=== PATIENT | male | born 1965 | race Caucasian/White ===

== ENCOUNTER 2019-04-22 17:13 | Inpatient (IN) | payer OTHER ==
[2019-04-22 17:30] LABS: Basophils # (A) 0.1 k/uL (0-0.2); Basophils % (A) 1 %; Eosinophils # (A) 0.1 k/uL (0-0.7); Eosinophils % (A) 1 %; HCT 43.6 % (39.0-53.0); HGB 13.7 gm/dL (13.0-17.5); Hypochromasia Slight; Lymphocytes # (A) 3.1 k/uL (1.0-4.8); Lymphocytes % (A) 20 %; MCH 29.4 pg (25.0-35.0); MCHC 31.5 g/dL (31.0-37.0); MCV 93.4 fL (80.0-100.0); Mean Platelet Volume 7.4; Monocytes # (A) 1.2 k/uL (0-1.0); Monocytes % (A) 8 %; Neutrophils % (A) 69 %; Platelet Count 302 k/uL (150-450); RBC 4.67 m/uL (4.30-5.90); RDW 14.2 % (11.5-15.5); WBC 15.8 k/uL (3.8-10.6)
[2019-04-22] MEDS ORDERED: NOREPINEPHRINE 32 MG in SODIUM CHLORIDE 0.9% 218 ML IV ONE (17:30)
[2019-04-22 17:39] LABS: INR 0.9 (<1.2); Partial Thromboplastin Time 26.6 sec (22.0-30.0); Prothrombin Time 10.1 sec (9.0-12.0)
[2019-04-22 17:42] LABS: Albumin 3.6 g/dL (3.5-5.0); Calcium 9.1 mg/dL (8.4-10.2); Potassium 2.8 mmol/L (3.5-5.1); Total Bilirubin 0.3 mg/dL (0.2-1.3); Total Protein 5.7 g/dL (6.3-8.2)
--- NOTE | 2019-04-22 18:04 | ED ---
General Adult HPI - General Chief complaint: Cardiac Arrest/CPR Stated complaint: Cardiac Arrest Source: EMS Mode of arrival: EMS - History of Present Illness Initial comments: Dictation was produced using [employer] dictation software. please excuse any grammatical, word or spelling errors. Chief Complaint: 54-year-old male presents after cardiac arrest. History of Present Illness: This 54-year-old male presents after cardiac arrest. EMS reports that patient was down for approximately 10 minutes. EMS got there CPR was started. CPR was continued for approximately 30 minutes. This point we do not know if patient has any medical history. He received multiple rounds of epinephrine. Unable to obtain ROS secondary to mental status. PHYSICAL EXAM: General Impression: Obtunded HEENT: Normocephalic atraumatic, fixed and dilated pupils Cardiovascular: Tachycardic Chest: Bilateral breath sounds Abdomen: abdomen soft, nondistended Musculoskeletal: Pulses present and equal in all extremities, no peripheral edema Neurological: Comatose, fixed dilated pupils Skin: Intact with no visualized rashes ED course: 54-year-old male presents with cardiac arrest. Upon initial arrival to the emergency department patient did have pulses. Mucous devices removed. Patient was intubated. Right femoral groin central line and right arterial line was placed in the right groin. EKG was obtained showing ST elevation in aVR with diffuse ST segment elevation. There is concern of proximal L Dejesus occlusion. Discussed patient case with Dr. Gunderson who is sent to activate JOSE. Patient given rectal aspirin. Heparin bolus administered. More history was obtained from significant other. She reports that patient donated plasma and hasn't really been feeling well. To her knowledge she was not complaining of any chest pain. Patient to be disposition to field laborer. Patient to be admitted to [facility] physician group Dr. Walter. EKG interpretation: Ventricular rate 101, sinus tachycardia,. 172, care is 80, QTc 461. ST elevation in aVR with reciprocal depressions diffusely Q waves in inferior leads. Clinical presentation is concerning for left main ST segment e levation ID. Review of Systems ROS Statement: Those systems with pertinent positive or pertinent negative responses have been documented in the HPI. ROS Other: All systems not noted in ROS Statement are negative. Past Medical History Past Medical History: Unable to Obtain History of Any Multi-Drug Resistant Organisms: Unobtainable Past Surgical History: Unable to Obtain Smoking Status: Unknown if ever smoked Past Alcohol Use History: Unable to Obtain Past Drug Use History: Unable to Obtain Course Vital Signs 04/22/19 04/22/19 04/22/19 17:17 17:41 17:45 Temperature Pulse Rate 98 116 H 116 H Respiratory 18 19 21 Rate Blood Pressure 108/58 134/81 159/98 O2 Sat by Pulse 100 100 100 Oximetry 04/22/19 04/22/19 04/22/19 17:50 17:55 18:00 Temperature Pulse Rate 120 H 121 H 121 H Respiratory 21 15 18 Rate Blood Pressure 180/108 202/120 216/129 O2 Sat by Pulse 99 99 98 Oximetry 04/22/19 18:09 Temperature 97.4 F L Pulse Rate 117 H Respiratory 16 Rate Blood Pressure 225/102 O2 Sat by Pulse 98 Oximetry ABP, PAP, CO, CI - Last 8 Hours Arterial Blood Pressure 159/157 Arterial Blood Pressure 206/119 Arterial Blood Pressure 238/164 Procedures - Central Line Placement Right Femoral Consent Obtained: emergent situation Patient Placed on Monitor/Pulse Ox: Yes MD Prep: mask, gown, gloves Central Line Prep: Chlorhexidine scrub Ultrasound Used for Placement: Yes Central Line Lumen Inserted: triple Bloods Obtained for Lab: Yes Central Line Position: good blood return, all ports aspirated, flushed, capped, sutured in place with 3-0 nylon Dressing Applied: Tegaderm Patient Tolerated Procedure: well - Intubation Laryngoscope: Pastrana Size: 4 ET Tube Size: 7.5 ET Tube Uncuffed: No Tube Secured Location: teeth Tube Placement Confirmation: visualized tube passing through cords, equal breath sounds bilaterally, no breath sounds over epigastrium, confirmation by capnometry Patient Tolerated Procedure: well Intubation Complications: none Medical Decision Making - Lab Data Result diagrams: 04/22/19 17:12 04/22/19 17:12 Lab Results 04/22/19 04/22/19 04/22/19 Range/Units 17:12 17:12 17:12 WBC 15.8 H (3.8-10.6) k/uL RBC 4.67 (4.30-5.90) m/uL Hgb 13.7 (13.0-17.5) gm/dL Hct 43.6 (39.0-53.0) % MCV 93.4 (80.0-100.0) fL MCH 29.4 (25.0-35.0) pg MCHC 31.5 (31.0-37.0) g/dL RDW 14.2 (11.5-15.5) % Plt Count 302 (150-450) k/uL Neutrophils % 69 % Lymphocytes % 20 % Monocytes % 8 % Eosinophils % 1 % Basophils % 1 % Neutrophils # 11.0 H (1.3-7.7) k/uL Lymphocytes # 3.1 (1.0-4.8) k/uL Monocytes # 1.2 H (0-1.0) k/uL Eosinophils # 0.1 (0-0.7) k/uL Basophils # 0.1 (0-0.2) k/uL Hypochromasia Slight PT 10.1 (9.0-12.0) sec INR 0.9 (<1.2) APTT 26.6 (22.0-30.0) sec VBG pH (7.31-7.41) VBG pCO2 (37-51) mmHg VBG HCO3 (24-28) mmol/L Sodium 142 (137-145) mmol/L Potassium 2.8 L (3.5-5.1) mmol/L Chloride 102 (98-107) mmol/L Carbon Dioxide 16 L (22-30) mmol/L Anion Gap 24 mmol/L BUN 14 (9-20) mg/dL Creatinine 1.81 H (0.66-1.25) mg/dL Est GFR (CKD-EPI)AfAm 48 (>60 ml/min/1.73 sqM) Est GFR (CKD-EPI)NonAf 42 (>60 ml/min/1.73 sqM) Glucose 323 H (74-99) mg/dL Plasma Lactic Acid Adarsh (0.7-2.0) mmol/L Calcium 9.1 (8.4-10.2) mg/dL Total Bilirubin 0.3 (0.2-1.3) mg/dL AST 46 (17-59) U/L ALT 36 (21-72) U/L Alkaline Phosphatase 158 H (38-126) U/L Troponin I (0.000-0.034) ng/mL Total Protein 5.7 L (6.3-8.2) g/dL Albumin 3.6 (3.5-5.0) g/dL 04/22/19 04/22/19 04/22/19 Range/Units 17:12 17:12 17:12 WBC (3.8-10.6) k/uL RBC (4.30-5.90) m/uL Hgb (13.0-17.5) gm/dL Hct (39.0-53.0) % MCV (80.0-100.0) fL MCH (25.0-35.0) pg MCHC (31.0-37.0) g/dL RDW (11.5-15.5) % Plt Count (150-450) k/uL Neutrophils % % Lymphocytes % % Monocytes % % Eosinophils % % Basophils % % Neutrophils # (1.3-7.7) k/uL Lymphocytes # (1.0-4.8) k/uL Monocytes # (0-1.0) k/uL Eosinophils # (0-0.7) k/uL Basophils # (0-0.2) k/uL Hypochromasia PT (9.0-12.0) sec INR (<1.2) APTT (22.0-30.0) sec VBG pH 6.89 L* (7.31-7.41) VBG pCO2 95 H* (37-51) mmHg VBG HCO3 17 L (24-28) mmol/L Sodium (137-145) mmol/L Potassium (3.5-5.1) mmol/L Chloride (98-107) mmol/L Carbon Dioxide (22-30) mmol/L Anion Gap mmol/L BUN (9-20) mg/dL Creatinine (0.66-1.25) mg/dL Est GFR (CKD-EPI)AfAm (>60 ml/min/1.73 sqM) Est GFR (CKD-EPI)NonAf (>60 ml/min/1.73 sqM) Glucose (74-99) mg/dL Plasma Lactic Acid Adarsh 12.8 H* (0.7-2.0) mmol/L Calcium (8.4-10.2) mg/dL Total Bilirubin (0.2-1.3) mg/dL AST (17-59) U/L ALT (21-72) U/L Alkaline Phosphatase (38-126) U/L Troponin I <0.012 (0.000-0.034) ng/mL Total Protein (6.3-8.2) g/dL Albumin (3.5-5.0) g/dL Disposition Clinical Impression: STEMI (ST elevation myocardial infarction) Disposition: ADMITTED IP TO THIS HOSP Condition: Critical Referrals: None,Stated [Primary Care Provider] - 1-2 days Decision Time: 18:20
[2019-04-22 18:07] LABS: VBG PH 6.89 (7.31-7.41)
[2019-04-22] MEDS ORDERED: ASPIRIN 300 MG SUPP RECTAL STA (18:07)
--- NOTE | 2019-04-22 18:08 | XR ---
EXAMINATION TYPE: XR chest 1V portable DATE OF EXAM: 04/22/2019 COMPARISON: NONE HISTORY: Chest pain TECHNIQUE: Single frontal view of the chest is obtained. FINDINGS: Artifact limits exam. ET tube in the right mainstem bronchus. NG tube seen coursing in the abdomen. No obvious pneumothorax or consolidation. Heart is enlarged. IMPRESSION: 1. ET tube is in the right mainstem bronchus correlate for repositioning
[2019-04-22] MEDS ORDERED: NALOXONE 0.4 MG/ML 1 ML VIAL IV PRN ×2 (18:15→21:56)
[2019-04-22] MEDS ORDERED: LIDOCAINE 1% INJ 10MG/ML (20 ML MDV) ONE (18:20)
[2019-04-22 18:21] LABS: ABG Base Excess -9.1 mmol/L; ABG HCO3 19 mmol/L (21-25); ABG Oxygen Saturation 99.4 % (94-97); ABG PCO2 52 mmHg (35-45); ABG PO2 261 mmHg (83-108); ABG TCO2 21 mmol/L (19-24); Allen Test Performed? Yes
--- NOTE | 2019-04-22 18:23 | ED ---
Medical Decision Making - Lab Data Result diagrams: 04/22/19 17:12 04/22/19 17:12 Lab Results 04/22/19 04/22/19 04/22/19 Range/Units 17:12 17:12 17:12 WBC 15.8 H (3.8-10.6) k/uL RBC 4.67 (4.30-5.90) m/uL Hgb 13.7 (13.0-17.5) gm/dL Hct 43.6 (39.0-53.0) % MCV 93.4 (80.0-100.0) fL MCH 29.4 (25.0-35.0) pg MCHC 31.5 (31.0-37.0) g/dL RDW 14.2 (11.5-15.5) % Plt Count 302 (150-450) k/uL Neutrophils % 69 % Lymphocytes % 20 % Monocytes % 8 % Eosinophils % 1 % Basophils % 1 % Neutrophils # 11.0 H (1.3-7.7) k/uL Lymphocytes # 3.1 (1.0-4.8) k/uL Monocytes # 1.2 H (0-1.0) k/uL Eosinophils # 0.1 (0-0.7) k/uL Basophils # 0.1 (0-0.2) k/uL Hypochromasia Slight PT 10.1 (9.0-12.0) sec INR 0.9 (<1.2) APTT 26.6 (22.0-30.0) sec VBG pH (7.31-7.41) VBG pCO2 (37-51) mmHg VBG HCO3 (24-28) mmol/L Sodium 142 (137-145) mmol/L Potassium 2.8 L (3.5-5.1) mmol/L Chloride 102 (98-107) mmol/L Carbon Dioxide 16 L (22-30) mmol/L Anion Gap 24 mmol/L BUN 14 (9-20) mg/dL Creatinine 1.81 H (0.66-1.25) mg/dL Est GFR (CKD-EPI)AfAm 48 (>60 ml/min/1.73 sqM) Est GFR (CKD-EPI)NonAf 42 (>60 ml/min/1.73 sqM) Glucose 323 H (74-99) mg/dL Plasma Lactic Acid Adarsh (0.7-2.0) mmol/L Calcium 9.1 (8.4-10.2) mg/dL Total Bilirubin 0.3 (0.2-1.3) mg/dL AST 46 (17-59) U/L ALT 36 (21-72) U/L Alkaline Phosphatase 158 H (38-126) U/L Troponin I (0.000-0.034) ng/mL Total Protein 5.7 L (6.3-8.2) g/dL Albumin 3.6 (3.5-5.0) g/dL 04/22/19 04/22/19 04/22/19 Range/Units 17:12 17:12 17:12 WBC (3.8-10.6) k/uL RBC (4.30-5.90) m/uL Hgb (13.0-17.5) gm/dL Hct (39.0-53.0) % MCV (80.0-100.0) fL MCH (25.0-35.0) pg MCHC (31.0-37.0) g/dL RDW (11.5-15.5) % Plt Count (150-450) k/uL Neutrophils % % Lymphocytes % % Monocytes % % Eosinophils % % Basophils % % Neutrophils # (1.3-7.7) k/uL Lymphocytes # (1.0-4.8) k/uL Monocytes # (0-1.0) k/uL Eosinophils # (0-0.7) k/uL Basophils # (0-0.2) k/uL Hypochromasia PT (9.0-12.0) sec INR (<1.2) APTT (22.0-30.0) sec VBG pH 6.89 L* (7.31-7.41) VBG pCO2 95 H* (37-51) mmHg VBG HCO3 17 L (24-28) mmol/L Sodium (137-145) mmol/L Potassium (3.5-5.1) mmol/L Chloride (98-107) mmol/L Carbon Dioxide (22-30) mmol/L Anion Gap mmol/L BUN (9-20) mg/dL Creatinine (0.66-1.25) mg/dL Est GFR (CKD-EPI)AfAm (>60 ml/min/1.73 sqM) Est GFR (CKD-EPI)NonAf (>60 ml/min/1.73 sqM) Glucose (74-99) mg/dL Plasma Lactic Acid Adarsh 12.8 H* (0.7-2.0) mmol/L Calcium (8.4-10.2) mg/dL Total Bilirubin (0.2-1.3) mg/dL AST (17-59) U/L ALT (21-72) U/L Alkaline Phosphatase (38-126) U/L Troponin I <0.012 (0.000-0.034) ng/mL Total Protein (6.3-8.2) g/dL Albumin (3.5-5.0) g/dL Critical Care Time Critical Care Time: Yes Total Critical Care Time: 31 Disposition Clinical Impression: STEMI (ST elevation myocardial infarction) Disposition: ADMITTED IP TO THIS [facility] Condition: Critical Referrals: None,Stated [Primary Care Provider] - 1-2 days
[2019-04-22] MEDS ORDERED: SODIUM BICARB 8.4% 50 ML VIAL (1 MEQ/ML) IV ONE ×2 (18:46→18:48)
[2019-04-22] MEDS ORDERED: SODIUM CHLORIDE 0.9% 1,000 ML IV ONE ×4 (18:53→18:55)
[2019-04-22] MEDS ORDERED: LIDOCAINE 1% INJ 10MG/ML (20 ML MDV) SQ ONE (18:55)
[2019-04-22] MEDS: METOPROLOL TARTRATE 5 MG/5 ML VIAL IVP ONE ×2 (18:56→19:16)
[2019-04-22] MEDS ORDERED: METOPROLOL TARTRATE 5 MG/5 ML VIAL IVP ONE ×2 (18:59→19:15)
[2019-04-22] MEDS: MAGNESIUM SULFATE-D5W PMX 1 GM in DEXTROSE/WATER 1 100ML.BAG IVPB SCH (19:00)
[2019-04-22] MEDS: POTASSIUM CHLORIDE 20 MEQ in WATER FOR INJECTION 1 100ML.BAG IVPB SCH ×3 (19:05→23:01)
[2019-04-22] MEDS: hydrALAZINE HCL 20 MG/ML 1 ML VIAL IV ONE ×2 (19:05→19:14)
[2019-04-22] MEDS ORDERED: hydrALAZINE HCL 20 MG/ML 1 ML VIAL ONE (19:08)
[2019-04-22] MEDS ORDERED: NITROGLYCERIN-D5W PMX 50 MG in DEXTROSE/WATER 1 250ML.BAG IV ONE (19:15)
[2019-04-22] MEDS ORDERED: IOPAMIDOL-370 125ML BTL INJ ONE (19:20)
[2019-04-22] MEDS ORDERED: FUROSEMIDE 10 MG/ML 4 ML VIAL IV ONE (19:20)
[2019-04-22] MEDS ORDERED: FUROSEMIDE 10 MG/ML 4 ML VIAL ONE (19:22)
[2019-04-22] MEDS ORDERED: RX INFO: IV CONTRAST WAS GIVEN 1 EACH MISC MISCELLANE PRN (19:23)
[2019-04-22] MEDS ORDERED: SODIUM CHLORIDE 0.9% 1,000 ML IV SCH (19:30)
--- NOTE | 2019-04-22 19:58 | P.CRDCN ---
History of Present Illness History of present illness: This is Dr. Kong dictating a consult on this patient The patient was interviewed and examined by me IMPRESSION / ASSESSMENT: Cardiac arrest patient presented with asystole. 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 Discussed with Dr. Chambers HPI Patient apparently was found in cardiac arrest at home after plasma donation No other history available Patient intubated History available from emergency room nurses ACS protocol for about 10 minutes in the emergency room ST depressions diffusely with ST elevation in aVR ROS: Not available EXAMINATION: Patient's blood pressures elevated in the Police Worker Sinus tachycardia Intubated Central chest retractions Abdomen is soft Breath sounds are reduced bilaterally Heart sounds are soft REVIEW OF LABS, ECG & MEDICAL DATA Lactic acidosis, elevated lactic acid levels, acidotic Elevated white count Creatinine 1.8 Troponin normal Twelve-lead ECG shows sinus tachycardia ST depression in the precordial leads and the inferolateral leads with ST elevation in aVR Past Medical History Past Medical History: Unable to Obtain History of Any Multi-Drug Resistant Organisms: Unobtainable Past Surgical History: Unable to Obtain Smoking Status: Unknown if ever smoked Past Alcohol Use History: Unable to Obtain Past Drug Use History: Unable to Obtain Medications and Allergies Allergies Allergy/AdvReac Type Severity Reaction Status Date / Time No Known Allergies Allergy Verified 04/22/19 18:51 Physical Exam Vitals: Vital Signs Temp Pulse Resp BP Pulse Ox 04/22/19 18:52 97.4 F L 111 H 18 233/131 99 04/22/19 18:20 111 H 18 233/131 99 04/22/19 18:15 113 H 14 230/132 98 04/22/19 18:10 117 H 17 225/132 98 04/22/19 18:09 97.4 F L 117 H 16 225/102 98 04/22/19 18:05 120 H 18 220/128 98 04/22/19 18:00 121 H 18 216/129 98 04/22/19 17:55 121 H 15 202/120 99 04/22/19 17:50 120 H 21 180/108 99 04/22/19 17:45 116 H 21 159/98 100 04/22/19 17:41 116 H 19 134/81 100 04/22/19 17:17 98 18 108/58 100 Intake and Output 04/22/19 04/22/19 04/22/19 06:59 14:59 22:59 Intake Total 469 Output Total 1200 Balance -731 Intake: IV 469 Output: Urine 1200 Other: Weight 98.611 kg ABP, PAP, CO, CI - Last 8 Hours Arterial Blood Pressure 52/23 Arterial Blood Pressure 80/80 Arterial Blood Pressure 0/0 Arterial Blood Pressure 159/157 Arterial Blood Pressure 206/119 Arterial Blood Pressure 238/164 Results 04/22/19 17:12 04/22/19 17:12 Cardiac Enzymes 04/22/19 04/22/19 Range/Units 17:12 17:12 AST 46 (17-59) U/L Troponin I <0.012 (0.000-0.034) ng/mL Coagulation 04/22/19 Range/Units 17:12 PT 10.1 (9.0-12.0) sec APTT 26.6 (22.0-30.0) sec CBC 04/22/19 Range/Units 17:12 WBC 15.8 H (3.8-10.6) k/uL RBC 4.67 (4.30-5.90) m/uL Hgb 13.7 (13.0-17.5) gm/dL Hct 43.6 (39.0-53.0) % Plt Count 302 (150-450) k/uL Comprehensive Metabolic Panel 04/22/19 Range/Units 17:12 Sodium 142 (137-145) mmol/L Potassium 2.8 L (3.5-5.1) mmol/L Chloride 102 (98-107) mmol/L Carbon Dioxide 16 L (22-30) mmol/L BUN 14 (9-20) mg/dL Creatinine 1.81 H (0.66-1.25) mg/dL Glucose 323 H (74-99) mg/dL Calcium 9.1 (8.4-10.2) mg/dL AST 46 (17-59) U/L ALT 36 (21-72) U/L Alkaline Phosphatase 158 H (38-126) U/L Total Protein 5.7 L (6.3-8.2) g/dL Albumin 3.6 (3.5-5.0) g/dL Current Medications Generic Name Dose Route Start Last Admin Trade Name Freq PRN Reason Stop Dose Admin Magnesium Sulfate/Dextrose 1 100 mls @ 100 mls/hr 04/22/19 19:00 04/22/19 19:00 gm/ IV Solution IVPB 04/22/19 20:59 50 mls Q1H DAYAMI Administration Potassium Chloride 20 meq/ IV 100 mls @ 50 mls/hr 04/22/19 19:00 04/22/19 19:05 Solution IVPB 04/23/19 00:59 18 mls Q2H DAYAMI Administration Protocol Sodium Chloride 1,000 mls @ 75 mls/hr 04/22/19 19:30 Saline 0.9% IV 04/23/19 00:31 .[id number] DAYAMI Miscellaneous Information 1 each 04/22/19 19:23 Rx Info: Iv Contrast Was Given MISCELLANE 04/24/19 19:23 DAILY PRN Per Protocol Naloxone HCl 0.2 mg 04/22/19 18:15 Narcan IV Q2M PRN Opioid Reversal Intake and Output 04/22/19 04/22/19 04/22/19 06:59 14:59 22:59 Intake Total 469 Output Total 1200 Balance -731 Intake: IV 469 Output: Urine 1200 Other: Weight 98.611 kg Patient Weight 04/23/19 06:59 Weight 98.611 kg 04/22/19 17:12 04/22/19 17:12
[2019-04-22 20:04] LABS: Glucose,Whole Blood 332 mg/dL (75-99)
--- NOTE | 2019-04-22 20:47 | XR ---
EXAMINATION TYPE: XR chest 1V portable DATE OF EXAM: 04/22/2019 COMPARISON: 04/22/2019 HISTORY: ET tube TECHNIQUE: Single frontal view of the chest is obtained. FINDINGS: ET tube is now seen with the tip at the level of thoracic inlet. NG tube stable. No consol idation or pneumothorax. No overt failure or pleural effusion. Heart size stable. IMPRESSION: ET tube now seen with the tip at the level of the thoracic inlet.
[2019-04-22 20:50] LABS: ABG Base Excess -2.2 mmol/L; ABG HCO3 22 mmol/L (21-25); ABG PCO2 33 mmHg (35-45); ABG PH 7.43 (7.35-7.45); ABG PO2 >400 mmHg (83-108); ABG TCO2 23 mmol/L (19-24); Allen Test Performed? Yes
[2019-04-22 21:01] LABS: ABG PH 7.18 (7.35-7.45)
[2019-04-22] MEDS ORDERED: INSULIN REGULAR BOLUS (FROM DRIP BAG) IV PRN (21:21)
[2019-04-22] MEDS ORDERED: INSULIN REGULAR 100 UNIT in SODIUM CHLORIDE 0.9% 100 ML IV SCH (21:30)
[2019-04-22] MEDS ORDERED: ACETAMINOPHEN SUPPOSITORY 650 MG SUPP RECTAL PRN (21:56)
--- NOTE | 2019-04-22 22:11 | P.HPIM ---
History of Present Illness H&P Date: 04/22/19 Chief Complaint: Found down and brought here with cardiac arrest The patient is a 54-year-old obese male the past medical history of smoking and obstructive sleep apnea on CPAP who apparently was in his normal state of health until donating plasma earlier today. The patient presented to the ER via EMS after they performed CPR in the field for approximately 10 mi nutes, on arrival here in the ER the patient was intubated and a central line was placed. The patient was noted to be in asystole CPR was continued for another 30 minutes, the patient was noted to have subsequent diffuse ST depression with elevation in aVR with concern for possible left main TN. 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 Urgent left heart catheterization was performed which revealed thickened coronary disease The patient was subsequently transferred to the ICU for closer monitoring. In the ER the patient had a comprehensive workup, chest x-ray was negative for consolidation or pneumothorax. Remarkable labs white count 15.8, serum potassium 2.8 serum bicarb 16, serum creatinine 1.81, blood sugar 323, lactic acid 12.8. Magnesium 3.0, alkaline phosphatase 158, total protein 5.7. Review of Systems ROS unobtainable: due to endotracheal tube Past Medical History Past Medical History: Unable to Obtain History of Any Multi-Drug Resistant Organisms: Unobtainable Past Surgical History: Unable to Obtain Smoking Status: Unknown if ever smoked Past Alcohol Use History: Unable to Obtain Past Drug Use History: Unable to Obtain Medications and Allergies Home Medications Medication Instructions Recorded Confirmed Type No Known Home Medications 04/22/19 04/22/19 History Allergies Allergy/AdvReac Type Severity Reaction Status Date / Time No Known Allergies Allergy Verified 04/22/19 21:26 Physical Exam Vitals: Vital Signs Temp Pulse Resp BP Pulse Ox 04/22/19 18:52 97.4 F L 111 H 18 233/131 99 04/22/19 18:20 111 H 18 233/131 99 04/22/19 18:15 113 H 14 230/132 98 04/22/19 18:10 117 H 17 225/132 98 04/22/19 18:09 97.4 F L 117 H 16 225/102 98 04/22/19 18:05 120 H 18 220/128 98 04/22/19 18:00 121 H 18 216/129 98 04/22/19 17:55 121 H 15 202/120 99 04/22/19 17:50 120 H 21 180/108 99 04/22/19 17:45 116 H 21 159/98 100 04/22/19 17:41 116 H 19 134/81 100 04/22/19 17:17 98 18 108/58 100 Intake and Output 04/22/19 04/22/19 04/22/19 06:59 14:59 22:59 Intake Total 469 Output Total 1900 Balance -1431 Intake: IV 469 Output: Urine 1900 Other: Voiding Method Indwelling Catheter Weight 98.611 kg ABP, PAP, CO, CI - Last 8 Hours Arterial Blood Pressure 52/23 Arterial Blood Pressure 80/80 Arterial Blood Pressure 0/0 Arterial Blood Pressure 159/157 Arterial Blood Pressure 206/119 Arterial Blood Pressure 238/164 Constitutional: No acute distress, sedated on propofol currently on mechanical ventilator Eyes: Anicteric sclerae, moist conjunctiva, no lid-lag ENMT: NC/AT,Oropharynx clear, no erythema, exudates Neck:Supple, FROM, no masses, or JVD, No carotid bruits; No thyromegaly Lungs: Clear to auscultation, Clear to percussion, Normal respiratory effort, no accessory muscle use Cardiovascular: Heart regular in rate and rhythm, No murmurs, gallops, or rubs no peripheral edema Abdominal: Soft Nontender, nom distended, no guarding, no rebound or rigidity, Normoactive bowel sounds No hepatomegaly, No splenomegaly, No palpable mass No abdominal wall hernia noted Skin: Normal temperature, tone, texture, turgor, No induration No subcutaneous nodules, No rash, lesions, No ulcers Extremities:No digital cyanosis No clubbing, Pedal pulses intact and symmetrical Radial pulses intact and symmetrical Normal gait and station, No calf tenderness Neuro: Unable to fully assess patient sedated on propofol GCS of 4 Results CBC & Chem 7: 04/23/19 03:14 04/23/19 03:14 Labs: Abnormal Lab Results - Last 24 Hours (Table) 04/22/19 04/22/19 04/22/19 Range/Units 17:12 17:12 17:12 WBC 15.8 H (3.8-10.6) k/uL Neutrophils # 11.0 H (1.3-7.7) k/uL Monocytes # 1.2 H (0-1.0) k/uL ABG pH (7.35-7.45) ABG pCO2 (35-45) mmHg ABG pO2 (83-108) mmHg ABG HCO3 (21-25) mmol/L ABG O2 Saturation (94-97) % VBG pH (7.31-7.41) VBG pCO2 (37-51) mmHg VBG HCO3 (24-28) mmol/L Potassium 2.8 L (3.5-5.1) mmol/L Carbon Dioxide 16 L (22-30) mmol/L Creatinine 1.81 H (0.66-1.25) mg/dL Glucose 323 H (74-99) mg/dL POC Glucose (mg/dL) (75-99) mg/dL Plasma Lactic Acid Adarsh 12.8 H* (0.7-2.0) mmol/L Magnesium (1.6-2.3) mg/dL Alkaline Phosphatase 158 H (38-126) U/L Total Protein 5.7 L (6.3-8.2) g/dL 04/22/19 04/22/19 04/22/19 Range/Units 17:12 17:12 18:17 WBC (3.8-10.6) k/uL Neutrophils # (1.3-7.7) k/uL Monocytes # (0-1.0) k/uL ABG pH 7.18 L* (7.35-7.45) ABG pCO2 52 H (35-45) mmHg ABG pO2 261 H (83-108) mmHg ABG HCO3 19 L (21-25) mmol/L ABG O2 Saturation 99.4 H (94-97) % VBG pH 6.89 L* (7.31-7.41) VBG pCO2 95 H* (37-51) mmHg VBG HCO3 17 L (24-28) mmol/L Potassium (3.5-5.1) mmol/L Carbon Dioxide (22-30) mmol/L Creatinine (0.66-1.25) mg/dL Glucose (74-99) mg/dL POC Glucose (mg/dL) (75-99) mg/dL Plasma Lactic Acid Adarsh (0.7-2.0) mmol/L Magnesium 3.0 H (1.6-2.3) mg/dL Alkaline Phosphatase (38-126) U/L Total Protein (6.3-8.2) g/dL 04/22/19 04/22/19 Range/Units 20:00 20:48 WBC (3.8-10.6) k/uL Neutrophils # (1.3-7.7) k/uL Monocytes # (0-1.0) k/uL ABG pH (7.35-7.45) ABG pCO2 33 L (35-45) mmHg ABG pO2 >400 H (83-108) mmHg ABG HCO3 (21-25) mmol/L ABG O2 Saturation 100.0 H (94-97) % VBG pH (7.31-7.41) VBG pCO2 (37-51) mmHg VBG HCO3 (24-28) mmol/L Potassium (3.5-5.1) mmol/L Carbon Dioxide (22-30) mmol/L Creatinine (0.66-1.25) mg/dL Glucose (74-99) mg/dL POC Glucose (mg/dL) 332 H (75-99) mg/dL Plasma Lactic Acid Adarsh (0.7-2.0) mmol/L Magnesium (1.6-2.3) mg/dL Alkaline Phosphatase (38-126) U/L Total Protein (6.3-8.2) g/dL Assessment and Plan (1) Cardiopulmonary arrest Current Visit: Yes Status: Acute Code(s): I46.9 - CARDIAC ARREST, CAUSE UNSPECIFIED SNOMED Code(s): 296293136 (2) Ventilator dependent Current Visit: Yes Status: Acute Code(s): Z99.11 - DEPENDENCE ON RESPIRATOR [VENTILATOR] STATUS SNOMED Code(s): 191143061 (3) Leukocytosis Current Visit: Yes Status: Acute Code(s): D72.829 - ELEVATED WHITE BLOOD CELL COUNT, UNSPECIFIED SNOMED Code(s): 400221206 (4) Acute kidney injury Current Visit: Yes Status: Acute Code(s): N17.9 - ACUTE KIDNEY FAILURE, UNSPECIFIED SNOMED Code(s): 46376070 (5) Hyperglycemia Current Visit: Yes Status: Acute Code(s): R73.9 - HYPERGLYCEMIA, UNSPECIFIED SNOMED Code(s): 46093253 (6) SIRS (systemic inflammatory response syndrome) Current Visit: Yes Status: Acute Code(s): R65.10 - SIRS OF NON-INFECTIOUS ORIGIN W/O ACUTE ORGAN DYSFUNCTION SNOMED Code(s): 568142657 (7) Metabolic acidosis Current Visit: Yes Status: Acute Code(s): E87.2 - ACIDOSIS SNOMED Code(s): 83878025 (8) Hypokalemia Current Visit: Yes Status: Acute Code(s): E87.6 - HYPOKALEMIA SNOMED Code(s): 64352172 (9) Hypertensive emergency Current Visit: Yes Status: Acute Code(s): I16.1 - HYPERTENSIVE EMERGENCY SNOMED Code(s): 119307421373877 Plan: The patient is admitted anticipated greater than 2 midnight stay after being admitted with cardiopulmonary arrest with ROSC patient currently ventilator dependent we'll consult pulmonology for vent management, urgent coronary angiography is been negative for any suggestion of any obstructive coronary disease, the patient is sedated on propofol with a GCS of 4. We'll order CT of his head due to history of head trauma, also consult neurology. Patient was noted to have hypertensive emergency but is now normotensive post cath. We'll check a d-dimer, blood culture, urinalysis, echocardiogram, renal ultrasound and start the patient on empiric IV antibiotics with Zosyn as a patient needs sirs criteria with an unknown focus of infection of this time. We will continue IV fluids in the setting of acute kidney injury and replace the patient's electrolytes as he was noted to be hypokalemic. We'll also check A1c and the patient was started on insulin drip per protocol, initiate supportive me dications morphine, Protonix, Tylenol. We'll continue to follow his clinical course CODE STATUS; full code Discussed plan of care with: Nursing Anticipated discharge: To be determined by course Prophylaxis PPI therapy and SCDs
[2019-04-22] MEDS ORDERED: ONDANSETRON 4 MG/2 ML VIAL IVP PRN (22:17)
[2019-04-22 22:32] LABS: Glucose,Whole Blood 357 mg/dL (75-99)
--- NOTE | 2019-04-22 22:32 | XR ---
EXAM: XR Chest, 1 View CLINICAL HISTORY: ITS.REASON XR Reason: advancing tube, verify tube placement TECHNIQUE: Frontal view of the chest. COMPARISON: 04/22/19 at 2015. FINDINGS: Interval advancement of endotracheal tube, the tip approximately 6 cm above the julian. Feeding tube extends below the diaphragm, the tip below the field of view. Additional findings similar to recent prior. IMPRESSION: Interval advancement of endotracheal tube, the tip approximately 6 cm above the julian.
[2019-04-22] MEDS ORDERED: fentaNYL (PF) 1,000 MCG in SODIUM CHLORIDE 0.9% 80 ML IV SCH (23:00)
[2019-04-22] MEDS: PROPOFOL 1,000 MG in EMPTY BAG 1 BAG IV SCH (23:02)
--- NOTE | 2019-04-22 23:08 | CC ---
CARDIAC CATHETERIZATION REPORT DATE OF SERVICE: April 22, 2019 PERFORMING PHYSICIAN: Bubba Chambers M.D., patient financial services coordinator. PROCEDURE PERFORMED: 1. Selective right and left coronary angiogram. 2. Left heart catheterization. INDICATION: This is a 54-year-old gentleman who brought to the emergency room after he had a cardiac arrest. The EKG showed ST-segment elevation in AVR with diffuse ST-segment depression concerning for severe triple-vessel coronary artery disease with severe left main coronary artery disease. Because of that, an emergent heart catheterization was advised. COMPLICATION: None. LEVEL OF SEDATION: The patient was intubated on mechanical ventilation when he came to the the cardiac superintendent geophysical laboratory. APPROACH: The left common femoral approach. PROCEDURE IN DETAIL: After obtaining an informed consent, the patient was brought to the cardiac superintendent geophysical laboratory. The left common femoral artery was cannulated using micropuncture technique, the micropuncture wire passed easily. Then I placed a 6-Emirati sheath in the left common femoral artery. After that, I did selective right and left coronary angiogram using JR4 and JL4 catheters. The left heart catheterization was performed using the JR4 catheter. The procedure was completed without any complication. CORONARY ANGIOGRAM: 1. The right coronary artery has mild disease in the proximal portion. In the mid and distal portion is normal and bifurcates into PDA and PLV branches both are angiographically normal. 2. The left main is angiographically normal. It bifurcates into the circumflex and left anterior descending artery. 3. The left circumflex is a large caliber vessel. It is a nondominant vessel. The left circumflex is angiographically normal, in the midportion gives rise into a large OM branch which bifurcates into 2 subbranches both appeared to be angiographically normal. 4. The LAD: The proximal LAD appeared to be angiographically normal. The mid LAD is normal as well and gives rise into a large diagonal branch which seems to be normal and the LAD distally appeared to be normal. There was myocardial bridging that was seen in the mid LAD. HEMODYNAMICS: The left ventricular end-diastolic pressure was 16 mmHg without significant gradient across the aortic valve. CONCLUSION: 1. Normal coronary angiogram. 2. Normal left ventricular end-diastolic pressure. POSTPROCEDURE MANAGEMENT: 1. Start the patient on nitroglycerin drip for hypertension. 2. ICU admission. 3. Follow up with the patient. MMODL / IJN: [id number] /
[2019-04-22] MEDS ORDERED: HEPARIN SODIUM,PORCINE 10,000 UNIT/ML 1 ML VIAL IV ONE (23:12)
[2019-04-22 23:31] LABS: Glucose,Whole Blood 281 mg/dL (75-99)
[2019-04-22 23:41] LABS: Partial Thromboplastin Time 22.5 sec (22.0-30.0); Prothrombin Time 10.3 sec (9.0-12.0)
[2019-04-23] MEDS: MAGNESIUM SULFATE-D5W PMX 1 GM in DEXTROSE/WATER 1 100ML.BAG IVPB SCH (00:05)
[2019-04-23] MEDS: HEPARIN SOD,PORK IN 0.45% NACL 25,000 UNIT in 0.45% NACL 1 250ML.BAG IV SCH ×3 (00:10→16:30)
[2019-04-23] MEDS: PIPERACILLIN-TAZOBACTAM 3.375 GM in SODIUM CHLORIDE 0.9% 100 ML IVPB SCH ×2 (00:15→09:23)
--- NOTE | 2019-04-23 00:43 | US ---
EXAM: US Duplex Bilateral Lower Extremity Veins CLINICAL HISTORY: ITS.REASON US Reason: r/o DVT TECHNIQUE: Real-time duplex ultrasound scan of the bilateral lower extremity veins integrating B-mode two-dimensional vascular structure, Doppler spectral analysis, color flow Doppler imaging and compression. COMPARISON: No relevant prior studies available. FINDINGS: Limitations: Limited study due to technical factors. Right deep veins: No DVT in the visualized right lower extremity veins. The EIV, CFV, and calf veins are not visualized. Right superficial veins: Unremarkable as visualized. Left deep veins: No DVT in the visualized left lower extremity veins. The EIV and calf veins are not visualized. Left superficial veins: Unremarkable as visualized. IMPRESSION: Limited study, as above. No evidence of DVT in the visualized lower extremity veins.
[2019-04-23 01:00] LABS: Appearance,Urine Cloudy (Clear); Bilirubin,Urine Negative (Negative); Blood,Urine Negative (Negative); Color,Urine Yellow; Glucose,Urine (UA) Trace (Negative); Hyaline Casts,Urine 6 /lpf (0-2); Ketones,Urine Negative (Negative); Leukocyte Esterase,Urine Negative (Negative); Mucus,Urine Occasional /hpf; Nitrite,Urine Negative (Negative); PH, Urine 5.5 (5.0-8.0); Protein,Urine Trace (Negative); RBC,Urine 1 /hpf (0-5); Specific Gravity,Urine 1.022 (1.001-1.035); Urobilinogen,Urine <2.0 mg/dL (<2.0); WBC,Urine 10 /hpf (0-5)
[2019-04-23 01:02] LABS: Glucose,Whole Blood 240 mg/dL (75-99)
[2019-04-23] MEDS: HEPARIN SODIUM,PORCINE 5,000 UNIT/ML 1 ML VIAL IV PRN ×2 (01:03→15:33)
[2019-04-23 02:18] LABS: Glucose,Whole Blood 169 mg/dL (75-99)
[2019-04-23 03:00] LABS: Glucose,Whole Blood 149 mg/dL (75-99)
[2019-04-23] MEDS: PROPOFOL 1,000 MG in EMPTY BAG 1 BAG IV SCH ×5 (03:00→20:24)
[2019-04-23 03:33] LABS: Basophils % (A) 0 %; Eosinophils # (A) 0.1 k/uL (0-0.7); Eosinophils % (A) 1 %; HCT 42.4 % (39.0-53.0); Lymphocytes # (A) 0.5 k/uL (1.0-4.8); Lymphocytes % (A) 3 %; MCH 29.3 pg (25.0-35.0); MCHC 33.1 g/dL (31.0-37.0); MCV 88.7 fL (80.0-100.0); Mean Platelet Volume 7.1; Monocytes # (A) 0.9 k/uL (0-1.0); Monocytes % (A) 5 %; Neutrophils # (A) 16.4 k/uL (1.3-7.7); Neutrophils % (A) 91 %; Platelet Count 307 k/uL (150-450); RBC 4.78 m/uL (4.30-5.90); RDW 14.4 % (11.5-15.5)
[2019-04-23 03:50] LABS: Calcium 8.5 mg/dL (8.4-10.2); Magnesium 2.1 mg/dL (1.6-2.3); Potassium 3.5 mmol/L (3.5-5.1)
[2019-04-23 04:16] LABS: Glucose,Whole Blood 150 mg/dL (75-99)
[2019-04-23 04:25] LABS: Phosphorus 0.9 mg/dL (2.5-4.5)
[2019-04-23] MEDS ORDERED: Phosphorus Replacement Protoco 1 EACH MISC MISCELLANE PRN (04:27)
--- NOTE | 2019-04-23 04:49 | CT ---
EXAM: CT Head Without Intravenous Contrast CLINICAL HISTORY: ITS.REASON CT Reason: Cardiopulmonary arrest with head trauma, altered TECHNIQUE: Axial computed tomography images of the head/brain without intravenous contrast. CTDI is 49.1 mGy and DLP is 1306.4 mGy-cm. This CT exam was performed using one or more of the following dose reduction techniques: automated exposure control, adjustment of the mA and/or kV according to patient size, and/or use of iterative reconstruction technique. COMPARISON: No relevant prior studies available. FINDINGS: Brain: Indistinct leblanc-white differentiation concerning for cerebral edema/hypoxic-ischemic injury. Low-attenuation noted in the region of the bilateral basal ganglia. No evidence of intracranial hemorrhage. No midline shift. Ventricles: Unremarkable. Bones/joints: No acute fracture. Soft tissues: Unremarkable. Sinuses: Unremarkable as visualized. Mastoid air cells: Unremarkable as visualized. IMPRESSION: Indistinct leblanc-white differentiation concerning for cerebral edema/hypoxic-ischemic injury. <MYCVCSECTION> Critical Value Communications 04/23/19 04:58 Verify Receipt Verified receipt with [facility]. Report given to [facility] Velasco in ICU on 04/23 04:57 (-04:00)
[2019-04-23] MEDS: POTASSIUM PHOSPHATE 10 MMOL in SODIUM CHLORIDE 0.9% 100 ML IV SCH ×3 (04:57→11:12)
[2019-04-23 05:22] LABS: Glucose,Whole Blood 122 mg/dL (75-99)
[2019-04-23 06:14] LABS: Glucose,Whole Blood 110 mg/dL (75-99)
[2019-04-23] MEDS ORDERED: POTASSIUM CHLORIDE 20 MEQ in WATER FOR INJECTION 1 100ML.BAG IVPB SCH (06:30)
[2019-04-23 07:13] LABS: Glucose,Whole Blood 104 mg/dL (75-99)
[2019-04-23 07:43] LABS: ABG Base Excess -0.1 mmol/L; ABG HCO3 24 mmol/L (21-25); ABG Oxygen Saturation 98.1 % (94-97); ABG PCO2 33 mmHg (35-45); ABG PH 7.47 (7.35-7.45); ABG PO2 93 mmHg (83-108); ABG TCO2 25 mmol/L (19-24); Allen Test Performed? Yes
--- NOTE | 2019-04-23 08:13 | XR ---
EXAMINATION TYPE: XR chest 1V portable DATE OF EXAM: 04/23/2019 COMPARISON: Prior chest x-ray 04/22/2019 HISTORY: Intubated TECHNIQUE: Single frontal view of the chest is obtained. FINDINGS: There is no significant interval change. Endotracheal tube, orogastric tube are overlying appropriate positions. Heart size is stable. No evident airspace disease, pneumothorax, or pleural ef fusion. There are overlying cardiac leads. IMPRESSION: Stable exam.
[2019-04-23 08:21] LABS: Glucose,Whole Blood 115 mg/dL (75-99)
[2019-04-23] MEDS: CHLORHEXIDINE GLUCONATE 15 ML CUP MUCOUS MEM SCH ×2 (09:23→20:23)
[2019-04-23] MEDS: PANTOPRAZOLE 40 MG/10 ML VIAL IV SCH ×2 (09:23→09:27)
--- NOTE | 2019-04-23 09:25 | US ---
EXAMINATION TYPE: US kidneys/renal and bladder DATE OF EXAM: 04/23/2019 COMPARISON: NONE CLINICAL HISTORY: elevated creatinine . EXAM MEASUREMENTS: Right Kidney: 12.3 x 4.4 x 5.6 cm Left Kidney: 12.0 x 6.1 x 5.5 cm Incidental finding of sludge and gallstones as well as hepatic steatosis and probable focal fatty spa ring adjacent to gallbladder. Technically difficult patient, patient large body habitus, done portably in ICU on vent. Right Kidney: No hydronephrosis or masses seen Left Kidney: No hydronephrosis or masses seen Bladder: teixeira noted Bilateral Jets seen: No There is no evidence for hydronephrosis at this point in time. No nephrolithiasis is seen. No aggie s are identified. The urinary bladder is anechoic. Bilateral ureteral jets are seen. IMPRESSION: 1. Incidentally noted gallbladder sludge, cholelithiasis, hepatic steatosis, and probable focal fatty sparing around the gallbladder fossa. 2. No hydronephrosis or nephrolithiasis of either kidney. Teixeira catheter is seen within the incomplet heather distended urinary bladder.
--- NOTE | 2019-04-23 10:15 | P.PN ---
Subjective Progress Note Date: 04/23/19 Principal diagnosis: Cardiac arrest 54-year-old male with PMH of GO on CPAP and smoker is brought to [facility] after cardiac arrest after apparently donating plasma earlier. EMS had performed 10 minutes of CPR, and on arrival to the ER, CPR was continued for another 30 minutes. Initial VBG showed respiratory acidosis. Patient was intubated and central line was placed. CBC showed a leukocytosis of 15.8. CMP showed hypokalemia with potassium of 2.8, bicarbonate of 16, creatinine of 1.81 and glucose of 323. Lactic acid was elevated at 5.2. D-dimer is elevated at 8.17. EKG showed diffuse ST depression with elevation in aVR with concerns of non-ST elevation MS. Cardiology was consulted and patient underwent coronary catheterization which showed no obstructive heart disease. Patient was also started on a heparin drip for concerns of PE. Patient was seen and examined this morning. No family is at bedside. He continues to be intubated and sedated with fentanyl and propofol. Ventilator settings are set at tidal volume 500, FiO2 40%, PEEP of 5 and rate of 20. He is continued on heparin drip and normal saline at 100 mL per hour. Insulin drip was started overnight for hyperglycemia but is currently discontinued. Objective - Vital Signs Vital signs: Vital Signs Temp 98.5 F 04/23/19 07:45 Pulse 81 04/23/19 09:00 Resp 28 H 04/23/19 09:00 BP 117/69 04/23/19 09:00 Pulse Ox 99 04/23/19 09:00 Intake & Output 04/22/19 04/23/19 04/23/19 18:59 06:59 18:59 Intake Total 400 1582.662 120 Output Total 3360 410 Balance 400 -1777.338 -290 Weight 98.611 kg 72.5 kg Intake: IV 400 1249 120 .9 1180 120 Intake, IV Titration 333.662 0 Amount Heparin Sod,Pork in 0.45% 106.204 0 NaCl 25,000 unit In 0.45 % NaCl 1 250ml.bag @ 18 UNITS/KG/HR 17.75 mls/hr IV .Q14H6M [facility] Rx#: [id number] Insulin Regular 100 unit 27.458 In Sodium Chloride 0.9% 100 ml @ Per Protocol IV .Q0M [facility] Rx#:[id number] Propofol 1,000 mg In 200.000 Empty Bag 1 bag @ Titrate IV .Q0M [facility] Rx#: [id number] Output: Gastric Drainage 350 Urine 3360 60 Other: Voiding Method Indwelling Catheter ABP, PAP, CO, CI - Last Documented Arterial Blood Pressure 52/23 - Exam General: [non toxic], [fully sedated and intubated], [appears at stated age] Derm: [warm], [dry] Head: [atraumatic], [normocephalic], [symmetric] Eyes: [no lid lag], [anicteric sclera] Mouth: [no lip lesion], [mucus membranes moist] Cardiovascular: [S1S2 reg], [no murmur], [positive DP pulse bilateral] Lungs: [CTA bilateral], [no rhonchi, no rales] , [no accessory muscle use] Abdominal: [soft], [ nontender to palpation], [no guarding], [no appreciable organomegaly], [Fonseca catheter in place] Ext: [no gross muscle atrophy], [no edema], [no contractures] - Labs CBC & Chem 7: 04/23/19 03:14 04/23/19 03:14 Labs: Abnormal Lab Results - Last 24 Hours (Table) 04/22/19 04/22/19 04/22/19 Range/Units 17:12 17:12 17:12 WBC 15.8 H (3.8-10.6) k/uL Neutrophils # 11.0 H (1.3-7.7) k/uL Lymphocytes # (1.0-4.8) k/uL Monocytes # 1.2 H (0-1.0) k/uL APTT (22.0-30.0) sec D-Dimer (<0.60) mg/L FEU ABG pH (7.35-7.45) ABG pCO2 (35-45) mmHg ABG pO2 (83-108) mmHg ABG HCO3 (21-25) mmol/L ABG Total CO2 (19-24) mmol/L ABG O2 Saturation (94-97) % VBG pH (7.31-7.41) VBG pCO2 (37-51) mmHg VBG HCO3 (24-28) mmol/L Potassium 2.8 L (3.5-5.1) mmol/L Chloride (98-107) mmol/L Carbon Dioxide 16 L (22-30) mmol/L Creatinine 1.81 H (0.66-1.25) mg/dL Glucose 323 H (74-99) mg/dL POC Glucose (mg/dL) (75-99) mg/dL Plasma Lactic Acid Adarsh 12.8 H* (0.7-2.0) mmol/L Phosphorus (2.5-4.5) mg/dL Magnesium (1.6-2.3) mg/dL Alkaline Phosphatase 158 H (38-126) U/L Total Protein 5.7 L (6.3-8.2) g/dL Urine Protein (Negative) Urine Glucose (UA) (Negative) Urine WBC (0-5) /hpf Hyaline Casts (0-2) /lpf Urine Mucus (None) /hpf 04/22/19 04/22/19 04/22/19 Range/Units 17:12 17:12 18:17 WBC (3.8-10.6) k/uL Neutrophils # (1.3-7.7) k/uL Lymphocytes # (1.0-4.8) k/uL Monocytes # (0-1.0) k/uL APTT (22.0-30.0) sec D-Dimer (<0.60) mg/L FEU ABG pH 7.18 L* (7.35-7.45) ABG pCO2 52 H (35-45) mmHg ABG pO2 261 H (83-108) mmHg ABG HCO3 19 L (21-25) mmol/L ABG Total CO2 (19-24) mmol/L ABG O2 Saturation 99.4 H (94-97) % VBG pH 6.89 L* (7.31-7.41) VBG pCO2 95 H* (37-51) mmHg VBG HCO3 17 L (24-28) mmol/L Potassium (3.5-5.1) mmol/L Chloride (98-107) mmol/L Carbon Dioxide (22-30) mmol/L Creatinine (0.66-1.25) mg/dL Glucose (74-99) mg/dL POC Glucose (mg/dL) (75-99) mg/dL Plasma Lactic Acid Adarsh (0.7-2.0) mmol/L Phosphorus (2.5-4.5) mg/dL Magnesium 3.0 H (1.6-2.3) mg/dL Alkaline Phosphatase (38-126) U/L Total Protein (6.3-8.2) g/dL Urine Protein (Negative) Urine Glucose (UA) (Negative) Urine WBC (0-5) /hpf Hyaline Casts (0-2) /lpf Urine Mucus (None) /hpf 04/22/19 04/22/19 04/22/19 Range/Units 20:00 20:48 21:10 WBC (3.8-10.6) k/uL Neutrophils # (1.3-7.7) k/uL Lymphocytes # (1.0-4.8) k/uL Monocytes # (0-1.0) k/uL APTT (22.0-30.0) sec D-Dimer (<0.60) mg/L FEU ABG pH (7.35-7.45) ABG pCO2 33 L (35-45) mmHg ABG pO2 >400 H (83-108) mmHg ABG HCO3 (21-25) mmol/L ABG Total CO2 (19-24) mmol/L ABG O2 Saturation 100.0 H (94-97) % VBG pH (7.31-7.41) VBG pCO2 (37-51) mmHg VBG HCO3 (24-28) mmol/L Potassium (3.5-5.1) mmol/L Chloride (98-107) mmol/L Carbon Dioxide (22-30) mmol/L Creatinine (0.66-1.25) mg/dL Glucose (74-99) mg/dL POC Glucose (mg/dL) 332 H (75-99) mg/dL Plasma Lactic Acid Adarsh 5.2 H* (0.7-2.0) mmol/L Phosphorus (2.5-4.5) mg/dL Magnesium (1.6-2.3) mg/dL Alkaline Phosphatase (38-126) U/L Total Protein (6.3-8.2) g/dL Urine Protein (Negative) Urine Glucose (UA) (Negative) Urine WBC (0-5) /hpf Hyaline Casts (0-2) /lpf Urine Mucus (None) /hpf 04/22/19 04/22/1904/22/19 Range/Units 21:35 22:29 23:28 WBC (3.8-10.6) k/uL Neutrophils # (1.3-7.7) k/uL Lymphocytes # (1.0-4.8) k/uL Monocytes # (0-1.0) k/uL APTT (22.0-30.0) sec D-Dimer 8.17 H (<0.60) mg/L FEU ABG pH (7.35-7.45) ABG pCO2 (35-45) mmHg ABG pO2 (83-108) mmHg ABG HCO3 (21-25) mmol/L ABG Total CO2 (19-24) mmol/L ABG O2 Saturation (94-97) % VBG pH (7.31-7.41) VBG pCO2 (37-51) mmHg VBG HCO3 (24-28) mmol/L Potassium (3.5-5.1) mmol/L Chloride (98-107) mmol/L Carbon Dioxide (22-30) mmol/L Creatinine (0.66-1.25) mg/dL Glucose (74-99) mg/dL POC Glucose (mg/dL) 357 H 281 H (75-99) mg/dL Plasma Lactic Acid Adarsh (0.7-2.0) mmol/L Phosphorus (2.5-4.5) mg/dL Magnesium (1.6-2.3) mg/dL Alkaline Phosphatase (38-126) U/L Total Protein (6.3-8.2) g/dL Urine Protein (Negative) Urine Glucose (UA) (Negative) Urine WBC (0-5) /hpf Hyaline Casts (0-2) /lpf Urine Mucus (None) /hpf 04/23/19 04/23/19 04/23/19 Range/Units 00:25 01:00 01:30 WBC (3.8-10.6) k/uL Neutrophils # (1.3-7.7) k/uL Lymphocytes # (1.0-4.8) k/uL Monocytes # (0-1.0) k/uL APTT (22.0-30.0) sec D-Dimer (<0.60) mg/L FEU ABG pH (7.35-7.45) ABG pCO2 (35-45) mmHg ABG pO2 (83-108) mmHg ABG HCO3 (21-25) mmol/L ABG Total CO2 (19-24) mmol/L ABG O2 Saturation (94-97) % VBG pH (7.31-7.41) VBG pCO2 (37-51) mmHg VBG HCO3 (24-28) mmol/L Potassium (3.5-5.1) mmol/L Chloride (98-107) mmol/L Carbon Dioxide (22-30) mmol/L Creatinine (0.66-1.25) mg/dL Glucose (74-99) mg/dL POC Glucose (mg/dL) 240 H (75-99) mg/dL Plasma Lactic Acid Adarsh 4.1 H* (0.7-2.0) mmol/L Phosphorus (2.5-4.5) mg/dL Magnesium (1.6-2.3) mg/dL Alkaline Phosphatase (38-126) U/L Total Protein (6.3-8.2) g/dL Urine Protein Trace H (Negative) Urine Glucose (UA) Trace H (Negative) Urine WBC 10 H (0-5) /hpf Hyaline Casts 6 H (0-2) /lpf Urine Mucus Occasional H (None) /hpf 04/23/19 04/23/19 04/23/19 Range/Units 02:03 02:58 03:14 WBC 18.0 H (3.8-10.6) k/uL Neutrophils # 16.4 H (1.3-7.7) k/uL Lymphocytes # 0.5 L (1.0-4.8) k/uL Monocytes # (0-1.0) k/uL APTT (22.0-30.0) sec D-Dimer (<0.60) mg/L FEU ABG pH (7.35-7.45) ABG pCO2 (35-45) mmHg ABG pO2 (83-108) mmHg ABG HCO3 (21-25) mmol/L ABG Total CO2 (19-24) mmol/L ABG O2 Saturation (94-97) % VBG pH (7.31-7.41) VBG pCO2 (37-51) mmHg VBG HCO3 (24-28) mmol/L Potassium (3.5-5.1) mmol/L Chloride (98-107) mmol/L Carbon Dioxide (22-30) mmol/L Creatinine (0.66-1.25) mg/dL Glucose (74-99) mg/dL POC Glucose (mg/dL) 169 H 149 H (75-99) mg/dL Plasma Lactic Acid Adarsh (0.7-2.0) mmol/L Phosphorus (2.5-4.5) mg/dL Magnesium (1.6-2.3) mg/dL Alkaline Phosphatase (38-126) U/L Total Protein (6.3-8.2) g/dL Urine Protein (Negative) Urine Glucose (UA) (Negative) Urine WBC (0-5) /hpf Hyaline Casts (0-2) /lpf Urine Mucus (None) /hpf 04/23/19 04/23/19 04/23/19 Range/Units 03:14 03:52 05:07 WBC (3.8-10.6) k/uL Neutrophils # (1.3-7.7) k/uL Lymphocytes # (1.0-4.8) k/uL Monocytes # (0-1.0) k/uL APTT (22.0-30.0) sec D-Dimer (<0.60) mg/L FEU ABG pH (7.35-7.45) ABG pCO2 (35-45) mmHg ABG pO2 (83-108) mmHg ABG HCO3 (21-25) mmol/L ABG Total CO2 (19-24) mmol/L ABG O2 Saturation (94-97) % VBG pH (7.31-7.41) VBG pCO2 (37-51) mmHg VBG HCO3 (24-28) mmol/L Potassium (3.5-5.1) mmol/L Chloride 110 H (98-107) mmol/L Carbon Dioxide (22-30) mmol/L Creatinine 1.52 H (0.66-1.25) mg/dL Glucose 156 H (74-99) mg/dL POC Glucose (mg/dL) 150 H 122 H (75-99) mg/dL Plasma Lactic Acid Adarsh (0.7-2.0) mmol/L Phosphorus 0.9 L* (2.5-4.5) mg/dL Magnesium (1.6-2.3) mg/dL Alkaline Phosphatase (38-126) U/L Total Protein (6.3-8.2) g/dL Urine Protein (Negative) Urine Glucose (UA) (Negative) Urine WBC (0-5) /hpf Hyaline Casts (0-2) /lpf Urine Mucus (None) /hpf 04/23/19 04/23/19 04/23/19 Range/Units 05:13 05:13 06:10 WBC (3.8-10.6) k/uL Neutrophils # (1.3-7.7) k/uL Lymphocytes # (1.0-4.8) k/uL Monocytes # (0-1.0) k/uL APTT 120.4 H* (22.0-30.0) sec D-Dimer (<0.60) mg/L FEU ABG pH (7.35-7.45) ABG pCO2 (35-45) mmHg ABG pO2 (83-108) mmHg ABG HCO3 (21-25) mmol/L ABG Total CO2 (19-24) mmol/L ABG O2 Saturation (94-97) % VBG pH (7.31-7.41) VBG pCO2 (37-51) mmHg VBG HCO3 (24-28) mmol/L Potassium (3.5-5.1) mmol/L Chloride (98-107) mmol/L Carbon Dioxide (22-30) mmol/L Creatinine (0.66-1.25) mg/dL Glucose (74-99) mg/dL POC Glucose (mg/dL) 110 H (75-99) mg/dL Plasma Lactic Acid Adarsh 3.2 H* (0.7-2.0) mmol/L Phosphorus (2.5-4.5) mg/dL Magnesium (1.6-2.3) mg/dL Alkaline Phosphatase (38-126) U/L Total Protein (6.3-8.2) g/dL Urine Protein (Negative) Urine Glucose (UA) (Negative) Urine WBC (0-5) /hpf Hyaline Casts (0-2) /lpf Urine Mucus (None) /hpf 04/23/19 04/23/19 04/23/19 Range/Units 06:58 07:34 08:08 WBC (3.8-10.6) k/uL Neutrophils # (1.3-7.7) k/uL Lymphocytes # (1.0-4.8) k/uL Monocytes # (0-1.0) k/uL APTT (22.0-30.0) sec D-Dimer (<0.60) mg/L FEU ABG pH 7.47 H (7.35-7.45) ABG pCO2 33 L (35-45) mmHg ABG pO2 (83-108) mmHg ABG HCO3 (21-25) mmol/L ABG Total CO2 25 H (19-24) mmol/L ABG O2 Saturation 98.1 H (94-97) % VBG pH (7.31-7.41) VBG pCO2 (37-51) mmHg VBG HCO3 (24-28) mmol/L Potassium (3.5-5.1) mmol/L Chloride (98-107) mmol/L Carbon Dioxide (22-30) mmol/L Creatinine (0.66-1.25) mg/dL Glucose (74-99) mg/dL POC Glucose (mg/dL) 104 H 115 H (75-99) mg/dL Plasma Lactic Acid Adarsh (0.7-2.0) mmol/L Phosphorus (2.5-4.5) mg/dL Magnesium (1.6-2.3) mg/dL Alkaline Phosphatase (38-126) U/L Total Protein (6.3-8.2) g/dL Urine Protein (Negative) Urine Glucose (UA) (Negative) Urine WBC (0-5) /hpf Hyaline Casts (0-2) /lpf Urine Mucus (None) /hpf Microbiology - Last 24 Hours (Table) 04/22/19 23:30 Gram Stain - Preliminary Sputum Sputum Culture - Preliminary Assessment and Plan Assessment: Assessment and Plan Acute hypoxic respiratory failure secondary to cardiac arrest post ROSC and probable anoxic brain injury, rule out PE Cardiac arrest post ROSC SIRS Elevated D-dimer Elevated creatinine Lactic acidosis Hypophosphatemia Hypokalemia Elevated blood glucose Patient was intubated post cardiac arrest and ROSC. Chest x-ray shows no pneumothorax or consolidation. Cardiac catheterization shows normal coronary angiogram. D-dimer is elevated at 8.17. CT. Shows signs of anoxic brain injury. Plans: Continue full ventilator support, management as per pulmonology. Would prefer conservative management since prognosis poor, will wait on pulmonology recommendations on whether CTA of the chest should be performed. Continue heparin drip at this time. Telemetry monitoring. Follow pulmonology, cardiology and neurology consultation. We'll need to contact family regarding patient's guarded prognosis. Plans: Management as above. Follow echocardiogram. Patient initially hypotensive on presentation. Has leukocytosis of 15.8 on admission, afebrile. Lactic acid 5.2. All related to cardiac arrest post ROSC. No clear signs of infection. Plans: Discontinue Zosyn. Follow blood culture. D-Dimer 8.17. Likely secondary to cardiac arrest post ROSC. Plans: Continue heparin drip. Would prefer conservative management since prognosis poor, will wait on pulmonology recommendations on whether CTA of the chest should be per formed. Creatinine 1.81. Unknown baseline. Likely secondary to dehydration. Plans: Continue normal saline at 100 mL per hour. Avoid nephrotoxins. Daily BMP. Lactic acid 5.2-3.2. Likely secondary to cardiac arrest. Plans: Continue normal saline at 100 mL per hour. Repeat lactic acid. Phosphate 0.9. Plans: Replace as per protocol. Potassium 2.8-3.5. Plans: Resolved. [id number] glucose 156. A1c 6.0. Plans: Discontinue insulin drip. Insulin sliding scale. Regular Accu-Cheks. Hypoglycemic precautions. [Patient admitted after cardiac arrest and ROSC within 40 minutes. Cardiac catheterization is nonobstructive. CT brain shows anoxic brain injury. Cardiology, Pulmonology and Neurology on board. We'll need to contact family regarding patient's guarded prognosis.]
[2019-04-23 10:16] LABS: Glucose,Whole Blood 110 mg/dL (75-99)
[2019-04-23] MEDS: MANNITOL 20% IV SCH ×3 (11:01→23:04)
--- NOTE | 2019-04-23 11:18 | P.CNNES ---
History of Present Illness Consult date: 04/23/19 Requesting physician: Antwon John Reason for Consult: AMS s/p cardiac arrest Chief complaint: Unresponsive History of Present Illness: This is a 54 yo male h/o tobacco use and GO on CPAP. He was found down on day of admission. CPR was administered for 10 minutes. He was intubated in the ER and noted to be in asystole. CPR ensued for another 30 minutes. He was noted to have possible AK for which cardiology was urgently consulted. CT Head showed loss of leblanc-white differentiation with concerns for cerebral edema. Neurology was then consulted. He has not had any seizure-like activity or myoclonus. Patient remains unresponsive and cannot provide any meaningful history. My historical information was obtained by discussing the case with the ICU staff and reviewing available medical records in EMR. Review of Systems Unable to obtain due to AMS Past Medical History Past Medical History: Unable to Obtain History of Any Multi-Drug Resistant Organisms: Unobtainable Past Surgical History: Unable to Obtain Past Anesthesia/Blood Transfusion Reactions: No Reported Reaction Smoking Status: Unknown if ever smoked Past Alcohol Use History: Unable to Obtain Past Drug Use History: Unable to Obtain Medications and Allergies Home Medications Medication Instructions Recorded Confirmed Type No Known Home Medications 04/22/19 04/22/19 History Allergies Allergy/AdvReac Type Severity Reaction Status Date / Time No Known Allergies Allergy Verified 04/22/19 21:26 Physical Examination - Vital Signs Vital Signs: Vital Signs Temp Pulse Resp BP Pulse Ox 04/23/19 09:00 81 28 H 117/69 99 04/23/19 08:45 81 27 H 117/69 98 04/23/19 08:30 81 26 H 122/72 98 04/23/19 08:15 81 27 H 122/72 98 04/23/19 08:00 81 22 117/68 98 04/23/19 07:45 98.5 F 81 29 H 117/68 97 04/23/19 07:30 81 25 H 108/68 98 04/23/19 07:15 83 29 H 108/68 99 04/23/19 07:00 81 27 H 106/65 98 04/23/19 06:45 82 30 H 98 04/23/19 06:30 82 20 04/23/19 06:15 83 29 H 98/64 99 04/23/19 06:00 82 27 H 95/62 98 04/23/19 05:30 84 27 H 98/59 98 04/23/19 05:15 82 24 97 04/23/19 05:00 81 24 98/59 97 04/23/19 04:45 82 26 H 98 04/23/19 04:30 98.2 F 84 27 H 91/60 98 04/23/19 03:45 84 25 H 92/59 99 04/23/19 03:30 85 25 H 96/57 99 04/23/19 03:15 85 25 H 96/57 99 04/23/19 03:00 84 27 H 90/58 99 04/23/19 02:45 84 28 H 95/62 98 04/23/19 02:30 83 26 H 98/55 98 04/23/19 02:15 83 27 H 95/58 98 04/23/19 02:00 82 25 H 93/59 98 04/23/19 01:45 82 30 H 93/58 98 04/23/19 01:30 82 28 H 100/58 98 04/23/19 01:15 84 27 H 92/56 97 04/23/19 01:00 81 30 H 97/59 98 04/23/19 00:45 81 33 H 89/60 97 04/23/19 00:30 86 30 H 86/63 96 04/23/19 00:15 89 35 H 84/59 93 L 04/23/19 00:00 98 F 87 32 H 86/59 96 04/22/19 23:53 91 30 H 93/59 93 L 04/22/19 23:45 91 40 H 93/57 95 04/22/19 23:30 90 41 H 103/62 96 04/22/19 23:15 91 45 H 96/62 97 04/22/19 23:00 95 41 H 104/68 97 04/22/19 22:45 99 43 H 106/67 96 04/22/19 22:30 100 34 H 118/70 95 04/22/19 22:15 98 30 H 141/86 98 04/22/19 22:00 92 30 H 142/96 99 04/22/19 21:45 92 31 H 143/97 98 04/22/19 21:30 93 30 H 141/84 98 04/22/19 21:15 96 28 H 142/88 99 04/22/19 21:00 97 32 H 132/83 98 04/22/19 20:45 100 35 H 135/87 98 04/22/19 20:30 103 H 25 H 131/91 99 04/22/19 20:15 105 H 24 167/116 98 04/22/19 20:00 98.7 F 103 H 23 141/108 99 04/22/19 19:57 26 H 04/22/19 18:52 97.4 F L 111 H 18 233/131 99 04/22/19 18:30 207/124 04/22/19 18:20 111 H 18 233/131 99 04/22/19 18:15 113 H 14 230/132 98 04/22/19 18:10 117 H 17 225/132 98 04/22/19 18:09 97.4 F L 117 H 16 225/102 98 04/22/19 18:05 120 H 18 220/128 98 04/22/19 18:00 121 H 18 216/129 98 04/22/19 17:55 121 H 15 202/120 99 04/22/19 17:50 120 H 21 180/108 99 04/22/19 17:45 116 H 21 159/98 100 04/22/19 17:41 116 H 19 134/81 100 04/22/19 17:17 98 18 108/58 100 Intake and Output 04/22/19 04/23/19 04/23/19 22:59 06:59 14:59 Intake Total 709 1273.662 120 Output Total 2575 785 410 Balance -1866 488.662 -290 Intake: IV 709 940 120 .9 240 940 120 Intake, IV Titration 333.662 0 Amount Heparin Sod,Pork in 0.45% 106.204 0 NaCl 25,000 unit In 0.45 % NaCl 1 250ml.bag @ 18 UNITS/KG/HR 17.75 mls/hr IV .Q14H6M [facility] Rx#: [id number] Insulin Regular 100 unit 27.458 In Sodium Chloride 0.9% 100 ml @ Per Protocol IV .Q0M [facility] Rx#:[id number] Propofol 1,000 mg In 200.000 Empty Bag 1 bag @ Titrate IV .Q0M [facility] Rx#: [id number] Output: Gastric Drainage 350 Urine 2575 785 60 Other: Voiding Method Indwelling Catheter Indwelling Catheter Weight 98.611 kg 72.5 kg 72.5 kg Gen NAD Intubated and sedated HEENT NCAT Sclera without icterus ETT in place Neck Supple no carotid bruit Cor RRR no m/r/g Lungs Coarse BS bilaterally Abd Soft NTND +BS Ext Warm to touch No edema Neuro MS GCS [id number] Intubated non-verbal but does not appear to communicate via other non-verbal means further detailed language function cannot be assessed CN PERRL Blinks to threat bilaterally -Doll's +Corneal's +Grimace to nostril stim bilaterally +Gag Motor Normal bulk/tone No tremors, asterixis, myoclonus or other adventitious movements No spontaneous motor movements Sens No response to nailbed stim x4 No obvious neglect Coord Cannot test due to AMS DTRs 2+/4 sym throughout Toes downgoing bilaterally No ankle clonus Gait Cannot test due to intubation Results - Laboratory Findings CBC and BMP: 04/23/19 03:14 04/23/19 03:14 Abnormal Lab Findings: Abnormal Labs 04/22/19 04/22/19 04/22/19 17:12 17:12 17:12 WBC 15.8 H Neutrophils # 11.0 H Lymphocytes # Monocytes # 1.2 H APTT D-Dimer ABG pH ABG pCO2 ABG pO2 ABG HCO3 ABG Total CO2 ABG O2 Saturation VBG pH VBG pCO2 VBG HCO3 Potassium 2.8 L Chloride Carbon Dioxide 16 L Creatinine 1.81 H Glucose 323 H POC Glucose (mg/dL) Plasma Lactic Acid Adarsh 12.8 H* Phosphorus Magnesium Alkaline Phosphatase 158 H Total Protein 5.7 L Urine Protein Urine Glucose (UA) Urine WBC Hyaline Casts Urine Mucus 04/22/19 04/22/19 04/22/19 17:12 17:12 18:17 WBC Neutrophils # Lymphocytes # Monocytes # APTT D-Dimer ABG pH 7.18 L* ABG pCO2 52 H ABG pO2 261 H ABG HCO3 19 L ABG Total CO2 ABG O2 Saturation 99.4 H VBG pH 6.89 L* VBG pCO2 95 H* VBG HCO3 17 L Potassium Chloride Carbon Dioxide Creatinine Glucose POC Glucose (mg/dL) Plasma Lactic Acid Adarsh Phosphorus Magnesium 3.0 H Alkaline Phosphatase Total Protein Urine Protein Urine Glucose (UA) Urine WBC Hyaline Casts Urine Mucus 04/22/19 04/22/19 04/22/19 20:00 20:48 21:10 WBC Neutrophils # Lymphocytes # Monocytes # APTT D-Dimer ABG pH ABG pCO2 33 L ABG pO2 >400 H ABG HCO3 ABG Total CO2 ABG O2 Saturation 100.0 H VBG pH VBG pCO2 VBG HCO3 Potassium Chloride Carbon Dioxide Creatinine Glucose POC Glucose (mg/dL) 332 H Plasma Lactic Acid Adarsh 5.2 H* Phosphorus Magnesium Alkaline Phosphatase Total Protein Urine Protein Urine Glucose (UA) Urine WBC Hyaline Casts Urine Mucus 04/22/19 04/22/19 04/22/19 21:35 22:29 23:28 WBC Neutrophils # Lymphocytes # Monocytes # APTT D-Dimer 8.17 H ABG pH ABG pCO2 ABG pO2 ABG HCO3 ABG Total CO2 ABG O2 Saturation VBG pH VBG pCO2 VBG HCO3 Potassium Chloride Carbon Dioxide Creatinine Glucose POC Glucose (mg/dL) 357 H 281 H Plasma Lactic Acid Adarsh Phosphorus Magnesium Alkaline Phosphatase Total Protein Urine Protein Urine Glucose (UA) Urine WBC Hyaline Casts Urine Mucus 04/23/19 04/23/19 04/23/19 00:25 01:00 01:30 WBC Neutrophils # Lymphocytes # Monocytes # APTT D-Dimer ABG pH ABG pCO2 ABG pO2 ABG HCO3 ABG Total CO2 ABG O2 Saturation VBG pH VBG pCO2 VBG HCO3 Potassium Chloride Carbon Dioxide Creatinine Glucose POC Glucose (mg/dL) 240 H Plasma Lactic Acid Adarsh 4.1 H* Phosphorus Magnesium Alkaline Phosphatase Total Protein Urine Protein Trace H Urine Glucose (UA) Trace H Urine WBC 10 H Hyaline Casts 6 H Urine Mucus Occasional H 04/23/19 04/23/19 04/23/19 02:03 02:58 03:14 WBC 18.0 H Neutrophils # 16.4 H Lymphocytes # 0.5 L Monocytes # APTT D-Dimer ABG pH ABG pCO2 ABG pO2 ABG HCO3 ABG Total CO2 ABG O2 Saturation VBG pH VBG pCO2 VBG HCO3 Potassium Chloride Carbon Dioxide Creatinine Glucose POC Glucose (mg/dL) 169 H 149 H Plasma Lactic Acid Adarsh Phosphorus Magnesium Alkaline Phosphatase Total Protein Urine Protein Urine Glucose (UA) Urine WBC Hyaline Casts Urine Mucus 04/23/19 04/23/19 04/23/19 03:14 03:52 05:07 WBC Neutrophils # Lymphocytes # Monocytes # APTT D-Dimer ABG pH ABG pCO2 ABG pO2 ABG HCO3 ABG Total CO2 ABG O2 Saturation VBG pH VBG pCO2 VBG HCO3 Potassium Chloride 110 H Carbon Dioxide Creatinine 1.52 H Glucose 156 H POC Glucose (mg/dL) 150 H 122 H Plasma Lactic Acid Adarsh Phosphorus 0.9 L* Magnesium Alkaline Phosphatase Total Protein Urine Protein Urine Glucose (UA) Urine WBC Hyaline Casts Urine Mucus 04/23/19 04/23/19 04/23/19 05:13 05:13 06:10 WBC Neutrophils # Lymphocytes # Monocytes # APTT 120.4 H* D-Dimer ABG pH ABG pCO2 ABG pO2 ABG HCO3 ABG Total CO2 ABG O2 Saturation VBG pH VBG pCO2 VBG HCO3 Potassium Chloride Carbon Dioxide Creatinine Glucose POC Glucose (mg/dL) 110 H Plasma Lactic Acid Adarsh 3.2 H* Phosphorus Magnesium Alkaline Phosphatase Total Protein Urine Protein Urine Glucose (UA) Urine WBC Hyaline Casts Urine Mucus 04/23/19 04/23/19 04/23/19 06:58 07:34 08:08 WBC Neutrophils # Lymphocytes # Monocytes # APTT D-Dimer ABG pH 7.47 H ABG pCO2 33 L ABG pO2 ABG HCO3 ABG Total CO2 25 H ABG O2 Saturation 98.1 H VBG pH VBG pCO2 VBG HCO3 Potassium Chloride Carbon Dioxide Creatinine Glucose POC Glucose (mg/dL) 104 H 115 H Plasma Lactic Acid Adarsh Phosphorus Magnesium Alkaline Phosphatase Total Protein Urine Protein Urine Glucose (UA) Urine WBC Hyaline Casts Urine Mucus 04/23/19 09:17 WBC Neutrophils # Lymphocytes # Monocytes # APTT D-Dimer ABG pH ABG pCO2 ABG pO2 ABG HCO3 ABG Total CO2 ABG O2 Saturation VBG pH VBG pCO2 VBG HCO3 Potassium Chloride Carbon Dioxide Creatinine Glucose POC Glucose (mg/dL) 110 H Plasma Lactic Acid Adarsh Phosphorus Magnesium Alkaline Phosphatase Total Protein Urine Protein Urine Glucose (UA) Urine WBC Hyaline Casts Urine Mucus - Diagnostic Findings Additional findings: CT Head wo cont 04/23/19. Loss of leblanc-white differentiation. Low attenuation in bilateral BG. No ICH. I have reviewed neuroimages myself. Assessment and Plan Assessment: Anoxic encephalopathy Cerebral cytotoxic edema Plan: -Mannitol 0.4g/kg IV q6h -Serum Na and Osm q6h; hold is Na >155 or Osm >320 -Repeat CT Head in am -EEG this pm -Prognosis tentatively guarded given prolonged downtime/resuscitation -d/w patient's family and ICU staff. All questions answered -Will follow up Thank you for this consultation. Please call with ?. Time with Patient: Greater than 30 (Time spent in direct patient care, greater than 50% of which was spent in [id number] counseling and coordination of care: 70 minutes)
[2019-04-23] MEDS ORDERED: DEXAMETHASONE SOD PHOSPHATE 4 MG/ML 1 ML VIAL IV SCH (12:00)
[2019-04-23 12:17] LABS: Glucose,Whole Blood 126 mg/dL (75-99)
--- NOTE | 2019-04-23 13:18 | ECHOF ---
Referral Reason:Cardiopulmonary arrest MEASUREMENTS -------- HEIGHT: 172.7 cm WEIGHT: 72.1 kg BP: 117/68 RVIDd: 2.6 cm (< 3.3) IVSd: 1.3 cm (0.6 - 1.1) LVIDd: 4.1 cm (3.9 - 5.3) LVPWd: 1.3 cm (0.6 - 1.1) IVSs: 1.7 cm LVIDs: 2.5 cm LVPWs: 1.8 cm LA Diam: 2.9 cm (2.7 - 3.8) Ao Diam: 3.5 cm (2.0 - 3.7) AV Cusp: 2.1 cm (1.5 - 2.6) MV EXCURSION: 22.863 mm (> 18.000) MV EF SLOPE: 94 mm/s (70 - 150) EPSS: 1.3 cm MV E Jose: 0.83 m/s MV DecT: 332 ms MV A Jose: 0.58 m/s MV E/A Ratio: 1.43 FINDINGS -------- Sinus rhythm. This was a technically adequate study. The left ventricular size is normal. There is mild concentric left ventricular hypertrophy. Overa ll left ventricular systolic function is normal with, an EF between 60 - 65 %. The right ventricle is normal in size. The left atrial size is normal. The right atrium is normal in size. Interatrial and interventricular septum intact. There is mild aortic valve sclerosis. The mitral valve is normal. The tricuspid valve appears structurally normal. The pulmonic valve was not well visualized. The aortic root size is normal. Normal inferior vena cava with normal inspiratory collapse consistent with estimated right atrial pre ssure of 5 mmHg. There is a small, generalized pericardial effusion present. CONCLUSIONS -------- 1. Sinus rhythm. 2. This was a technically adequate study. 3. The left ventricular size is normal. 4. There is mild concentric left ventricular hypertrophy. 5. Overall left ventricular systolic function is normal with, an EF between 60 - 65 %. 6. The right ventricle is normal in size. 7. The left atrial size is normal. 8. The right atrium is normal in size. 9. Interatrial and interventricular septum intact. 10. There is mild aortic valve sclerosis. 11. The mitral valve is normal. 12. The tricuspid valve appears structurally normal. 13. The pulmonic valve was not well visualized. 14. The aortic root size is normal. 15. Normal inferior vena cava with normal inspiratory collapse consistent with estimated right atrial pressure of 5 mmHg. 16. There is a small, generalized pericardial effusion present. BAIT TIER: Saira Gambino RDCS
--- NOTE | 2019-04-23 14:14 | P.CNPUL ---
History of Present Illness Consult date: 04/23/19 Reason for consult: other (Cardiac arrest) Chief complaint: Cardiac arrest History of present illness: This is a 54-year-old white male, smoker, history of obstructive sleep apnea, donated plasma earlier on the day of admission, patient presented to the ER via EMS after he had a sudden collapse. CPR was initiated by his family member and within 10 minutes EMS arrived. CPR was continued by EMS, and went on for at le ast 20 minutes. Based on the chart, patient was in asystole for over 30 minutes. Upon arrival to the ER, CPR was resumed for a short period of time, the patient was intubated, and a central line was placed by the ER physician. His EKG on presentation was abnormal showing ST depression in multiple leads, and ST elevation in aVR hence the patient was seen by cardiology upon arrival, and he was taken straight to cardiac catheterization. His cardiac catheterization report came back normal. Patient was transferred from the cardiac catheterization lab to the ICU. Presently the patient is on mechanical ventilation, his ventilator settings are tidal volume of 500, FiO2 of 40%, assist control rate of 20, and PEEP of 5. Patient is on propofol, fentanyl, he is also on heparin and IV fluid at 1 20 mL per hour. Heparin was initiated by the admitting physician mostly because of the concern of possible pulmonary embolism. His venous Doppler is negative, his clinical presentation is clearly not a presentation of pulmonary embolism, however will eventually recommend a CT angiogram of the chest in the next [address] of the brain showed indistinct leblanc white differentiation consistent with cerebral edema/hypoxic ischemic injury. Seen by neurology on consultation, felt that the patient clearly has cerebral cytotoxic edema and anoxic encephalopathy. Decadron was already initiated, and mannitol was recommended by neurology on the case. Also recommended repeat CT of the head in the morning. And recommended EEG which is pending. Review of Systems ROS unobtainable: due to endotracheal tube Past Medical History Past Medical History: Unable to Obtain History of Any Multi-Drug Resistant Organisms: Unobtainable Past Surgical History: Unable to Obtain Past Anesthesia/Blood Transfusion Reactions: No Reported Reaction Smoking Status: Unknown if ever smoked Past Alcohol Use History: Unable to Obtain Past Drug Use History: Unable to Obtain Medications and Allergies Home Medications Medication Instructions Recorded Confirmed Type No Known Home Medications 04/22/19 04/22/19 History Allergies Allergy/AdvReac Type Severity Reaction Status Date / Time No Known Allergies Allergy Verified 04/22/19 21:26 Physical Exam Vitals: Vital Signs Temp Pulse Resp BP Pulse Ox 04/23/19 13:30 101 H 25 H 151/87 96 04/23/19 13:00 98 31 H 135/74 97 04/23/19 12:30 98 27 H 135/74 95 04/23/19 12:00 98 24 167/86 92 L 04/23/19 11:30 112 H 40 H 175/97 98 04/23/19 11:00 104 H 42 H 168/94 100 04/23/19 10:30 92 43 H 149/86 99 04/23/19 10:00 89 25 H 120/75 98 04/23/19 09:30 83 28 H 129/67 98 04/23/19 09:00 81 28 H 117/69 99 04/23/19 08:45 81 27 H 117/69 98 04/23/19 08:30 81 26 H 122/72 98 04/23/19 08:15 81 27 H 122/72 98 04/23/19 08:00 81 22 117/68 98 04/23/19 07:45 98.5 F 81 29 H 117/68 97 04/23/19 07:30 81 25 H 108/68 98 04/23/19 07:15 83 29 H 108/68 99 04/23/19 07:00 81 27 H 106/65 98 04/23/19 06:45 82 30 H 98 04/23/19 06:30 82 20 04/23/19 06:15 83 29 H 98/64 99 04/23/19 06:00 82 27 H 95/62 98 04/23/19 05:30 84 27 H 98/59 98 04/23/19 05:15 82 24 97 04/23/19 05:00 81 24 98/59 97 04/23/19 04:45 82 26 H 98 04/23/19 04:30 98.2 F 84 27 H 91/60 98 04/23/19 03:45 84 25 H 92/59 99 04/23/19 03:30 85 25 H 96/57 99 04/23/19 03:15 85 25 H 96/57 99 04/23/19 03:00 84 27 H 90/58 99 04/23/19 02:45 84 28 H 95/62 98 04/23/19 02:30 83 26 H 98/55 98 04/23/19 02:15 83 27 H 95/58 98 04/23/19 02:00 82 25 H 93/59 98 04/23/19 01:45 82 30 H 93/58 98 04/23/19 01:30 82 28 H 100/58 98 04/23/19 01:15 84 27 H 92/56 97 04/23/19 01:00 81 30 H 97/59 98 04/23/19 00:45 81 33 H 89/60 97 04/23/19 00:30 86 30 H 86/63 96 04/23/19 00:15 89 35 H 84/59 93 L 04/23/19 00:00 98 F 87 32 H 86/59 96 04/22/19 23:53 91 30 H 93/59 93 L 04/22/19 23:45 91 40 H 93/57 95 04/22/19 23:30 90 41 H 103/62 96 04/22/19 23:15 91 45 H 96/62 97 04/22/19 23:00 95 41 H 104/68 97 04/22/19 22:45 99 43 H 106/67 96 04/22/19 22:30 100 34 H 118/70 95 04/22/19 22:15 98 30 H 141/86 98 04/22/19 22:00 92 30 H 142/96 99 04/22/19 21:45 92 31 H 143/97 98 04/22/19 21:30 93 30 H 141/84 98 04/22/19 21:15 96 28 H 142/88 99 04/22/19 21:00 97 32 H 132/83 98 04/22/19 20:45 100 35 H 135/87 98 04/22/19 20:30 103 H 25 H 131/91 99 04/22/19 20:15 105 H 24 167/116 98 04/22/19 20:00 98.7 F 103 H 23 141/108 99 04/22/19 19:57 26 H 04/22/19 18:52 97.4 F L 111 H 18 233/131 99 04/22/19 18:30 207/124 04/22/19 18:20 111 H 18 233/131 99 04/22/19 18:15 113 H 14 230/132 98 04/22/19 18:10 117 H 17 225/132 98 04/22/19 18:09 97.4 F L 117 H 16 225/102 98 04/22/19 18:05 120 H 18 220/128 98 04/22/19 18:00 121 H 18 216/129 98 04/22/19 17:55 121 H 15 202/120 99 04/22/19 17:50 120 H 21 180/108 99 04/22/19 17:45 116 H 21 159/98 100 04/22/19 17:41 116 H 19 134/81 100 04/22/19 17:17 98 18 108/58 100 Intake and Output 04/22/19 04/23/19 04/23/19 22:59 06:59 14:59 Intake Total 709 0047.995 0604.888 Output Total 2575 785 910 Balance -1866 488.662 265.888 Intake: IV 885 514 1781 .9 240 940 840 Piperacillin-Tazobactam 3 100 .375 gm In Sodium Chloride 0.9% 100 ml @ 25 mls/hr IVPB Q8HR [facility] Rx# :[id number] Potassium Phosphate 10 200 mmol In Sodium Chloride 0 .9% 100 ml @ 50 mls/hr IV Q2H [facility] Rx#:[id number] Intake, IV Titration 333.662 35.888 Amount Heparin Sod,Pork in 0.45% 106.204 0 NaCl 25,000 unit In 0.45 % NaCl 1 250ml.bag @ 18 UNITS/KG/HR 17.75 mls/hr IV .Q14H6M [facility] Rx#: [id number] Insulin Regular 100 unit 27.458 In Sodium Chloride 0.9% 100 ml @ Per Protocol IV .Q0M [facility] Rx#:[id number] Propofol 1,000 mg In 200.000 35.888 Empty Bag 1 bag @ Titrate IV .Q0M [facility] Rx#: [id number] Output: Gastric Drainage 350 Urine 2575 785 560 Other: Voiding Method Indwelling Catheter Indwelling Catheter Weight 98.611 kg 72.5 kg 72.5 kg General: Revealed a 54-year-old white male, on mechanical ventilation, sedated, noted to be quite agitated and tachypneic off propofol. Eyes: Pupils are pinpoint, no icterus, patient opens eyes UNpurposefully, upward gaze deviation is noted. ENMT: Moist mucous membranes, throat is clear, no erythema, endotracheal tube and orogastric tube are intact Neck: Supple, no neck masses, no thyromegaly. Short obese neck is noted. Lungs: Diminished breath sounds at the bases no rhonchi no wheezes. Cardiovascular: Normal S1 and S2, no S3 gallop, no murmur. Abdominal: Soft nontender no megaly no rebound no guarding. Skin: No rashes, no areas of erythema. Extremities: No clubbing edema or cyanosis, good pulses bilaterally. Neuro: Refer to full neurological evaluation, patient is presently on propofol. Results - Laboratory Findings CBC and BMP: 04/23/19 03:14 04/23/19 03:14 ABG ABG pH 7.47 (7.35-7.45) H 04/23/19 07:34 ABG pCO2 33 mmHg (35-45) L 04/23/19 07:34 ABG pO2 93 mmHg (83-108) 04/23/19 07:34 ABG O2 Saturation 98.1 % (94-97) H 04/23/19 07:34 PT/INR, D-dimer PT 10.3 sec (9.0-12.0) 04/22/19 21:23 INR 1.0 (<1.2) 04/22/19 21:23 D-Dimer 8.17 mg/L FEU (<0.60) H 04/22/19 21:35 Abnormal lab findings: Abnormal Labs 04/22/19 04/22/19 04/22/19 17:12 17:12 17:12 WBC 15.8 H Neutrophils # 11.0 H Lymphocytes # Monocytes # 1.2 H APTT D-Dimer ABG pH ABG pCO2 ABG pO2 ABG HCO3 ABG Total CO2 ABG O2 Saturation VBG pH VBG pCO2 VBG HCO3 Potassium 2.8 L Chloride Carbon Dioxide 16 L Creatinine 1.81 H Glucose 323 H POC Glucose (mg/dL) Plasma Lactic Acid Adarsh 12.8 H* Phosphorus Magnesium Alkaline Phosphatase 158 H Total Protein 5.7 L Urine Protein Urine Glucose (UA) Urine WBC Hyaline Casts Urine Mucus 04/22/19 04/22/19 04/22/19 17:12 17:12 18:17 WBC Neutrophils # Lymphocytes # Monocytes # APTT D-Dimer ABG pH 7.18 L* ABG pCO2 52 H ABG pO2 261 H ABG HCO3 19 L ABG Total CO2 ABG O2 Saturation 99.4 H VBG pH 6.89 L* VBG pCO2 95 H* VBG HCO3 17 L Potassium Chloride Carbon Dioxide Creatinine Glucose POC Glucose (mg/dL) Plasma Lactic Acid Adarsh Phosphorus Magnesium 3.0 H Alkaline Phosphatase Total Protein Urine Protein Urine Glucose (UA) Urine WBC Hyaline Casts Urine Mucus 04/22/19 04/22/19 04/22/19 20:00 20:48 21:10 WBC Neutrophils # Lymphocytes # Monocytes # APTT D-Dimer ABG pH ABG pCO2 33 L ABG pO2 >400 H ABG HCO3 ABG Total CO2 ABG O2 Saturation 100.0 H VBG pH VBG pCO2 VBG HCO3 Potassium Chloride Carbon Dioxide Creatinine Glucose POC Glucose (mg/dL) 332 H Plasma Lactic Acid Adarsh 5.2 H* Phosphorus Magnesium Alkaline Phosphatase Total Protein Urine Protein Urine Glucose (UA) Urine WBC Hyaline Casts Urine Mucus 04/22/19 04/22/19 04/22/19 21:35 22:29 23:28 WBC Neutrophils # Lymphocytes # Monocytes # APTT D-Dimer 8.17 H ABG pH ABG pCO2 ABG pO2 ABG HCO3 ABG Total CO2 ABG O2 Saturation VBG pH VBG pCO2 VBG HCO3 Potassium Chloride Carbon Dioxide Creatinine Glucose POC Glucose (mg/dL) 357 H 281 H Plasma Lactic Acid Adarsh Phosphorus Magnesium Alkaline Phosphatase Total Protein Urine Protein Urine Glucose (UA) Urine WBC Hyaline Casts Urine Mucus 04/23/19 04/23/19 04/23/19 00:25 01:00 01:30 WBC Neutrophils # Lymphocytes # Monocytes # APTT D-Dimer ABG pH ABG pCO2 ABG pO2 ABG HCO3 ABG Total CO2 ABG O2 Saturation VBG pH VBG pCO2 VBG HCO3 Potassium Chloride Carbon Dioxide Creatinine Glucose POC Glucose (mg/dL) 240 H Plasma Lactic Acid Adarsh 4.1 H* Phosphorus Magnesium Alkaline Phosphatase Total Protein Urine Protein Trace H Urine Glucose (UA) Trace H Urine WBC 10 H Hyaline Casts 6 H Urine Mucus Occasional H 04/23/19 04/23/19 04/23/19 02:03 02:58 03:14 WBC 18.0 H Neutrophils # 16.4 H Lymphocytes # 0.5 L Monocytes # APTT D-Dimer ABG pH ABG pCO2 ABG pO2 ABG HCO3 ABG Total CO2 ABG O2 Saturation VBG pH VBG pCO2 VBG HCO3 Potassium Chloride Carbon Dioxide Creatinine Glucose POC Glucose (mg/dL) 169 H 149 H Plasma Lactic Acid Adarsh Phosphorus Magnesium Alkaline Phosphatase Total Protein Urine Protein Urine Glucose (UA) Urine WBC Hyaline Casts Urine Mucus 04/23/19 04/23/19 04/23/19 03:14 03:52 05:07 WBC Neutrophils # Lymphocytes # Monocytes # APTT D-Dimer ABG pH ABG pCO2 ABG pO2 ABG HCO3 ABG Total CO2 ABG O2 Saturation VBG pH VBG pCO2 VBG HCO3 Potassium Chloride 110 H Carbon Dioxide Creatinine 1.52 H Glucose 156 H POC Glucose (mg/dL) 150 H 122 H Plasma Lactic Acid Adarsh Phosphorus 0.9 L* Magnesium Alkaline Phosphatase Total Protein Urine Protein Urine Glucose (UA) Urine WBC Hyaline Casts Urine Mucus 04/23/19 04/23/19 04/23/19 05:13 05:13 06:10 WBC Neutrophils # Lymphocytes # Monocytes # APTT 120.4 H* D-Dimer ABG pH ABG pCO2 ABG pO2 ABG HCO3 ABG Total CO2 ABG O2 Saturation VBG pH VBG pCO2 VBG HCO3 Potassium Chloride Carbon Dioxide Creatinine Glucose POC Glucose (mg/dL) 110 H Plasma Lactic Acid Adarsh 3.2 H* Phosphorus Magnesium Alkaline Phosphatase Total Protein Urine Protein Urine Glucose (UA) Urine WBC Hyaline Casts Urine Mucus 04/23/19 04/23/19 04/23/19 06:58 07:34 08:08 WBC Neutrophils # Lymphocytes # Monocytes # APTT D-Dimer ABG pH 7.47 H ABG pCO2 33 L ABG pO2 ABG HCO3 ABG Total CO2 25 H ABG O2 Saturation 98.1 H VBG pH VBG pCO2 VBG HCO3 Potassium Chloride Carbon Dioxide Creatinine Glucose POC Glucose (mg/dL) 104 H 115 H Plasma Lactic Acid Adarsh Phosphorus Magnesium Alkaline Phosphatase Total Protein Urine Protein Urine Glucose (UA) Urine WBC Hyaline Casts Urine Mucus 04/23/19 04/23/19 09:17 12:16 WBC Neutrophils # Lymphocytes # Monocytes # APTT D-Dimer ABG pH ABG pCO2 ABG pO2 ABG HCO3 ABG Total CO2 ABG O2 Saturation VBG pH VBG pCO2 VBG HCO3 Potassium Chloride Carbon Dioxide Creatinine Glucose POC Glucose (mg/dL) 110 H 126 H Plasma Lactic Acid Adarsh Phosphorus Magnesium Alkaline Phosphatase Total Protein Urine Protein Urine Glucose (UA) Urine WBC Hyaline Casts Urine Mucus - Diagnostic Findings Chest x-ray: image reviewed (No evidence of active disease noted on the chest x- ray,) Additional studies: CT of the brain was noted, as noted in HPI. Assessment and Plan Assessment: Impression: 1 cardiopulmonary arrest, exact etiology is not clear, cardiac catheterization was nondiagnostic. 2 acute hypoxic respiratory failure secondary to cardiac arrest requiring intubation and mechanical ventilation 3 anoxic brain injury is strongly suspected 4 acute kidney injury secondary to cardiac arrest and acute tubular necrosis. 5 history of obstructive sleep apnea syndrome 6 strongly doubt pulmonary embolism based on the clinical presentation and based on the initial ABG and follow-up ABG. However will continue heparin for now, and if renal status improves, will recommend CT angiogram of the chest. Recommendation: Continue ventilatory support, continue mannitol and Decadron, EEG is pending, nutritional support, GI and DVT prophylaxis, continue heparin empirically for now, patient was given a short trial off propofol, and he was noted to be extremely tachypneic, tachycardic, and agitated, no purposeful movements or responses were noted. Hence placed back on propofol. We'll continue to follow. Notices is poor and guarded, family updated on his condition. And very aware of his potential anoxic brain injury. Time with Patient: Greater than 30
[2019-04-23 14:59] LABS: Sodium 141 mmol/L (137-145)
[2019-04-23] MEDS ORDERED: HEPARIN SOD,PORK IN 0.45% NACL 25,000 UNIT in 0.45% NACL 1 250ML.BAG IV SCH (15:15)
--- NOTE | 2019-04-23 15:30 | EEG ---
ELECTROENCEPHALOGRAM REPORT DATE OF TESTIN04/23/2019 LOCAL PROBLEM: Cardiac arrest. Cerebral edema on CT head. EEG was requested to rule out epileptic activity. TYPE OF RECORDING: Bedside tracing using the 10-20 international electrode placement system. The patient has been sedated on Propofol. FINDINGS: The background of this tracing is seen with a diffuse delta slowing. There are paroxysms of generalized spike/wave discharges throughout the recording. Photic stimulation and hyperventilation are not performed. No definitive sleep architecture is seen. No background asymmetry is noted. IMPRESSION: This is an abnormal electroencephalogram with: 1. Excessive background slowing. 2. Paroxysms of generalized spike/wave discharges indicative of anoxic brain injury. Clinical correlation is advised. MMODL / IJN: [id number] / MTDD
[2019-04-23] MEDS: INSULIN ASPART (NovoLOG) 100 UNIT/ML VIAL SQ SCH ×2 (16:29→20:23)
[2019-04-23 16:32] LABS: Glucose,Whole Blood 130 mg/dL (75-99)
[2019-04-23] MEDS: MORPHINE SULFATE 2 MG/ML SYRINGE IV PRN ×2 (16:33→20:42)
[2019-04-23] MEDS ORDERED: levETIRAcetam IV 1,000 MG in SALINE 1 100ML.BAG IVPB STA (16:57)
[2019-04-23 19:31] LABS: Urine Alcohol Negative (Negative); Urine Barbiturate Negative (Negative); Urine Cocaine Negative (Negative); Urine Methadone Negative (Negative); Urine Opiates Negative (Negative); Urine Phencyclidine Negative (Negative)
[2019-04-23 20:26] LABS: Glucose,Whole Blood 133 mg/dL (75-99)
[2019-04-23] MEDS: levETIRAcetam IV 750 MG in SODIUM CHLORIDE 0.9% 100 ML IVPB SCH (20:31)
[2019-04-23 21:11] LABS: Sodium 144 mmol/L (137-145)
[2019-04-23 23:58] LABS: Glucose,Whole Blood 140 mg/dL (75-99)
[2019-04-24] MEDS: PROPOFOL 1,000 MG in EMPTY BAG 1 BAG IV SCH ×8 (00:09→22:30)
[2019-04-24 01:29] LABS: Sodium 146 mmol/L (137-145)
[2019-04-24] MEDS: fentaNYL (PF) 1,000 MCG in SODIUM CHLORIDE 0.9% 80 ML IV SCH (04:11)
[2019-04-24] MEDS: MORPHINE SULFATE 2 MG/ML SYRINGE IV PRN (04:19)
[2019-04-24 05:34] LABS: Basophils % (A) 0 %; Eosinophils % (A) 0 %; HCT 36.5 % (39.0-53.0); HGB 12.3 gm/dL (13.0-17.5); Lymphocytes # (A) 1.2 k/uL (1.0-4.8); Lymphocytes % (A) 8 %; MCHC 33.7 g/dL (31.0-37.0); MCV 86.2 fL (80.0-100.0); Mean Platelet Volume 6.8; Monocytes # (A) 0.8 k/uL (0-1.0); Monocytes % (A) 5 %; Neutrophils # (A) 13.4 k/uL (1.3-7.7); Neutrophils % (A) 86 %; Platelet Count 271 k/uL (150-450); RBC 4.23 m/uL (4.30-5.90); RDW 13.7 % (11.5-15.5); WBC 15.6 k/uL (3.8-10.6)
[2019-04-24] MEDS: HEPARIN SOD,PORK IN 0.45% NACL 25,000 UNIT in 0.45% NACL 1 250ML.BAG IV SCH ×2 (05:39→16:15)
[2019-04-24 05:40] LABS: Calcium 8.5 mg/dL (8.4-10.2); Phosphorus 2.5 mg/dL (2.5-4.5); Potassium 3.1 mmol/L (3.5-5.1)
[2019-04-24] MEDS ORDERED: Potassium Replacement Protocol 1 EACH MISC MISCELLANE PRN (05:53)
[2019-04-24] MEDS ORDERED: HEPARIN SODIUM,PORCINE 5,000 UNIT/ML 1 ML VIAL IV STA (05:55)
[2019-04-24 06:06] LABS: Glucose,Whole Blood 131 mg/dL (75-99)
[2019-04-24] MEDS: POTASSIUM BICARBONATE/CIT AC 20 MEQ TABLET.EFF NG-TUBE SCH ×2 (06:18→06:55)
[2019-04-24] MEDS: MANNITOL 20% IV SCH ×4 (06:53→23:51)
[2019-04-24 08:06] LABS: ABG Base Excess 2.4 mmol/L; ABG HCO3 26 mmol/L (21-25); ABG Oxygen Saturation 98.8 % (94-97); ABG PCO2 38 mmHg (35-45); ABG PH 7.45 (7.35-7.45); ABG PO2 110 mmHg (83-108); ABG TCO2 28 mmol/L (19-24); Allen Test Performed? Yes
[2019-04-24] MEDS: PANTOPRAZOLE 40 MG/10 ML VIAL IV SCH (08:09)
[2019-04-24] MEDS: CHLORHEXIDINE GLUCONATE 15 ML CUP MUCOUS MEM SCH ×2 (08:09→20:38)
[2019-04-24] MEDS: levETIRAcetam IV 750 MG in SODIUM CHLORIDE 0.9% 100 ML IVPB SCH ×2 (08:22→20:38)
[2019-04-24] MEDS: INSULIN ASPART (NovoLOG) 100 UNIT/ML VIAL SQ SCH ×3 (08:27→22:42)
[2019-04-24 08:28] LABS: Glucose,Whole Blood 106 mg/dL (75-99)
--- NOTE | 2019-04-24 08:28 | XR ---
EXAMINATION TYPE: XR chest 1V portable DATE OF EXAM: 04/24/2019 COMPARISON: Prior chest x-ray 04/23/2019 HISTORY: Intubated TECHNIQUE: Single frontal view of the chest is obtained. FINDINGS: Endotracheal tube, orogastric tube are overlying appropriate positions. Interval developme nt of retrocardiac density, the hemidiaphragm is obscured. No pneumothorax. Heart size is stable. Pat michael basilar density also present on the right. IMPRESSION: Correlate for possible interval development of basilar pneumonia versus atelectasis, pos sible associated effusion.
[2019-04-24] MEDS ORDERED: RX INFO: IV CONTRAST WAS GIVEN 1 EACH MISC MISCELLANE PRN (10:36)
--- NOTE | 2019-04-24 12:05 | CT ---
EXAMINATION TYPE: CT brain wo con DATE OF EXAM: 04/24/2019 COMPARISON: None HISTORY: Sudden cardiac arrest. CT DLP: 1095 mGycm Automated exposure control for dose reduction was used. FINDINGS: Soft tissue attenuation nasopharynx likely relating secretions. There is low-attenuation in the basal ganglia bilaterally. This could represent recent ischemia. Ther e are very few sulci in the cerebral convexities. I could not exclude global ischemia. No obvious acu te hemorrhage. No mass effect. Findings suggestive of sinusitis. Report called to the ICU. Artifact l imits assessment for subtle hemorrhage. No obvious intraparenchymal acute hemorrhage. IMPRESSION: REDUCED SULCI DIFFUSELY AND AREAS OF LOW ATTENUATION WITHIN THE BILATERAL BASAL GANGLIA. ACUTE ISCHEM IA IS IN THE DIFFERENTIAL DIAGNOSIS AND MRI WITH DIFFUSION IMAGING RECOMMENDED CLINICALLY WARRANTE D.
[2019-04-24 12:09] LABS: Glucose,Whole Blood 97 mg/dL (75-99)
--- NOTE | 2019-04-24 12:09 | CT ---
EXAMINATION TYPE: CT angio chest DATE OF EXAM: 04/24/2019 11:59 AM COMPARISON: None HISTORY: Sudden cardiac arrest. CT DLP: 721.5 mGycm Automated exposure control for dose reduction was used. CONTRAST: CTA scan of the thorax is performed with IV Contrast, patient injected with 100 mL of Isovue 370, pul monary embolism protocol. . FINDINGS: Exam limited by artifact. LUNGS: There are bilateral areas of subsegmental consolidation greater on the left. No obvious pneumo thorax. No sizable pleural effusion. There is a somewhat nodular appearing subpleural consolidation m ost likely is postinflammatory posteriorly within the right upper lobe. MEDIASTINUM: There is satisfactory enhancement of the pulmonary artery and its branches, there is no CT evidence for pulmonary embolism. There are no greater than 1 cm hilar or mediastinal lymph nodes. No pericardial effusion is seen. ET tube is seen at the level above the julian. OTHER: NG tube is seen within the stomach. There is evidence of hepatic steatosis. Multiple gallston es are seen.. IMPRESSION: 1. Bilateral areas of consolidation could been the basis of atelectasis. Correlate clinically to excl ude aspiration pneumonia
[2019-04-24 12:55] LABS: Sodium 146 mmol/L (137-145)
--- NOTE | 2019-04-24 13:51 | P.PN ---
Subjective Progress Note Date: 04/24/19 Principal diagnosis: Cardiac arrest, anoxic brain injury This is a 54-year-old white male, smoker, history of obstructive sleep apnea, donated plasma earlier on the day of admission, patient presented to the ER via EMS after he had a sudden collapse. CPR was initiated by his family member and within 10 minutes EMS arrived. CPR was continued by EMS, and went on for at least 20 minutes. Based on the chart, patient was in asystole for over 30 minutes. Upon arrival to the ER, CPR was resumed for a short period of time, the patient was intubated, and a central line was placed by the ER physician. His EKG on presentation was abnormal showing ST depression in multiple leads, and ST elevation in aVR hence the patient was seen by cardiology upon arrival, and he was taken straight to cardiac catheterization. His cardiac catheterization report came back normal. Patient was transferred from the cardiac catheterization lab to the ICU. Presently the patient is on mechanical ventilation, his ventilator settings are tidal volume of 500, FiO2 of 40%, assist control rate of 20, and PEEP of 5. Patient is on propofol, fentanyl, he is also on heparin and IV fluid at 1 20 mL per hour. Heparin was initiated by the admitting physician mostly because of the concern of possible pulmonary embolism. His venous Doppler is negative, his clinical presentation is clearly not a presentation of pulmonary embolism, however will eventually recommend a CT angiogram of the chest in the next [address] of the brain showed indistinct leblanc white differentiation consistent with cerebral edema/hypoxic ischemic injury. Seen by neurology on consultation, felt that the patient clearly has cerebral cytotoxic edema and anoxic encephalopathy. Decadron was already initiated, and mannitol was recommended by neurology on the case. Also recommended repeat CT of the head in the morning. And recommended EEG which is pending. Reevaluated today on 04/24/2019, patient remains in the ICU, mechanically ventilated. His ventilator settings are tidal volume of 500 assist control rate of 20 FiO2 40% and PEEP of 5. ABG this morning showed a pO2 of 110 pCO2 of 38 pH of 7.45. Potassium is a bit low at 3.1 being corrected as per protocol. CBC is relatively normal. His urine drug screen from admission was negative. Patient remains on propofol, he is also on fentanyl, and I plan to discontinue both and assess neurological status after coming back from CT of the brain which was ordered to be done today by neurology. Overall the patient is about the same, he is unresponsive, pupils are nonreactive, and no corneal reflexes noted. Family was updated on his condition, and awaiting input from the neurologist to discuss his condition with the family again. Patient is hemodynamically stable, has good urine output, he is on nutritional support/enteral feeding. Objective - Vital Signs Vital signs: Vital Signs Temp 97.5 F L 04/24/19 08:00 Pulse 80 04/24/19 12:00 Resp 20 04/24/19 12:00 BP 135/81 04/24/19 12:00 Pulse Ox 93 L 04/24/19 12:00 Intake & Output 04/23/19 04/24/19 04/24/19 18:59 06:59 18:59 Intake Total 2444.795 3138.930 1030.5 Output Total 2410 2035 965 Balance 34.795 1103.930 65.5 Weight 72.5 kg 75.2 kg Intake: IV 1260 2018.8 714.5 .9 960 1440 600 Mannitol 20% Pmx 150 ml @ 450 300 mls/hr IV Q6H [facility] Rx #:[id number] Piperacillin-Tazobactam 3 100 .375 gm In Sodium Chloride 0.9% 100 ml @ 25 mls/hr IVPB Q8HR [facility] Rx# :[id number] Potassium Phosphate 10 200 mmol In Sodium Chloride 0 .9% 100 ml @ 50 mls/hr IV Q2H [facility] Rx#:[id number] fentaNYL (PF) 1,000 mcg 28.8 14.5 In Sodium Chloride 0.9% 80 ml @ 0.25 MCG/KG/HR 2. 465 mls/hr IV .Q24H [facility] Rx#:[id number] levETIRAcetam IV 750 mg 100 100 In Sodium Chloride 0.9% 100 ml @ 400 mls/hr IVPB Q12HR [facility] Rx#:[id number] Intake, IV Titration 1184.795 740.130 100 Amount Heparin Sod,Pork in 0.45% 115.377 NaCl 25,000 unit In 0.45 % NaCl 1 250ml.bag @ 18 UNITS/KG/HR 17.75 mls/hr IV .Q14H6M [facility] Rx#: [id number] Heparin Sod,Pork in 0.45% 50.28 246.986 NaCl 25,000 unit In 0.45 % NaCl 1 250ml.bag @ 23. 123 UNITS/KG/HR 16.764 mls/hr IV .[id number] [facility] Rx #:[id number] Mannitol 20% Pmx 150 ml @ 150 300 mls/hr IV Q6H [facility] Rx #:[id number] Propofol 1,000 mg In 68.488 Empty Bag 1 bag @ Titrate IV .Q0M [facility] Rx#: [id number] Propofol 1,000 mg In 91.35 370.244 100 Empty Bag 1 bag @ Titrate IV .Q0M [facility] Rx#: [id number] Sodium Chloride 0.9% 1, 600 120 000 ml @ 120 mls/hr IV . Q8H20M [facility] Rx#:[id number] fentaNYL (PF) 1,000 mcg 3.5 In Sodium Chloride 0.9% 80 ml @ 0.25 MCG/KG/HR 2. 465 mls/hr IV .Q24H [facility] Rx#:[id number] fentaNYL (PF) 1,000 mcg 5.80 2.9 In Sodium Chloride 0.9% 80 ml @ 0.5 MCG/KG/HR 3. 625 mls/hr IV .Q24H [facility] Rx#:[id number] levETIRAcetam IV 1,000 mg 100 In Saline 1 100ml.bag @ 400 mls/hr IVPB ONCE [facility] Rx#:[id number] Tube Feeding 290 186 Other 90 30 Output: Gastric Drainage 700 100 Urine 1710 1935 965 Other: Voiding Method Indwelling Catheter Indwelling Catheter Indwelling Catheter ABP, PAP, CO, CI - Last Documented Arterial Blood Pressure 52/23 - Exam General: 54-year-old white male, on mechanical ventilation, sedated, presently on propofol and fentanyl drip. Eyes: Pupils are pinpoint, no icterus, does not open eyes. ENMT: Moist mucous membranes, throat is clear, no erythema, endotracheal tube and orogastric tube are intact Neck: Supple, no neck masses, no thyromegaly. Short obese neck is noted. Lungs: Diminished breath sounds at the bases no rhonchi no wheezes. Cardiovascular: Normal S1 and S2, no S3 gallop, no murmur. Abdominal: Soft nontender no megaly no rebound no guarding. Skin: No rashes, no areas of erythema. Extremities: No clubbing edema or cyanosis, good pulses bilaterally. Neuro: Sedated, unresponsive to any stimuli, pupils nonreactive, no gag reflex. - Labs CBC & Chem 7: 04/24/19 05:13 04/24/19 11:58 Labs: Abnormal Lab Results - Last 24 Hours (Table) 04/23/19 04/23/19 04/23/19 Range/Units 14:20 16:27 20:13 WBC (3.8-10.6) k/uL RBC (4.30-5.90) m/uL Hgb (13.0-17.5) gm/dL Hct (39.0-53.0) % Neutrophils # (1.3-7.7) k/uL APTT 44.5 H (22.0-30.0) sec ABG pO2 (83-108) mmHg ABG HCO3 (21-25) mmol/L ABG Total CO2 (19-24) mmol/L ABG O2 Saturation (94-97) % Sodium (137-145) mmol/L Potassium (3.5-5.1) mmol/L Chloride (98-107) mmol/L Glucose (74-99) mg/dL POC Glucose (mg/dL) 130 H 133 H (75-99) mg/dL Osmolality (280-301) mosm/kg 04/23/19 04/23/19 04/23/19 Range/Units 20:22 20:22 23:45 WBC (3.8-10.6) k/uL RBC (4.30-5.90) m/uL Hgb (13.0-17.5) gm/dL Hct (39.0-53.0) % Neutrophils # (1.3-7.7) k/uL APTT 59.8 H (22.0-30.0) sec ABG pO2 (83-108) mmHg ABG HCO3 (21-25) mmol/L ABG Total CO2 (19-24) mmol/L ABG O2 Saturation (94-97) % Sodium (137-145) mmol/L Potassium (3.5-5.1) mmol/L Chloride (98-107) mmol/L Glucose (74-99) mg/dL POC Glucose (mg/dL) 140 H (75-99) mg/dL Osmolality 302 H (280-301) mosm/kg 04/24/19 04/24/19 04/24/19 Range/Units 01:13 05:13 05:13 WBC 15.6 H (3.8-10.6) k/uL RBC 4.23 L (4.30-5.90) m/uL Hgb 12.3 L (13.0-17.5) gm/dL Hct 36.5 L (39.0-53.0) % Neutrophils # 13.4 H (1.3-7.7) k/uL APTT (22.0-30.0) sec ABG pO2 (83-108) mmHg ABG HCO3 (21-25) mmol/L ABG Total CO2 (19-24) mmol/L ABG O2 Saturation (94-97) % Sodium 146 H 146 H (137-145) mmol/L Potassium 3.1 L (3.5-5.1) mmol/L Chloride 114 H (98-107) mmol/L Glucose 138 H (74-99) mg/dL POC Glucose (mg/dL) (75-99) mg/dL Osmolality 309 H 309 H (280-301) mosm/kg 04/24/19 04/24/19 04/24/19 Range/Units 05:13 05:52 07:56 WBC (3.8-10.6) k/uL RBC (4.30-5.90) m/uL Hgb (13.0-17.5) gm/dL Hct (39.0-53.0) % Neutrophils # (1.3-7.7) k/uL APTT 44.7 H (22.0-30.0) sec ABG pO2 110 H (83-108) mmHg ABG HCO3 26 H (21-25) mmol/L ABG Total CO2 28 H (19-24) mmol/L ABG O2 Saturation 98.8 H (94-97) % Sodium (137-145) mmol/L Potassium (3.5-5.1) mmol/L Chloride (98-107) mmol/L Glucose (74-99) mg/dL POC Glucose (mg/dL) 131 H (75-99) mg/dL Osmolality (280-301) mosm/kg 08/01/19 08/01/19 08/01/19 Range/Units 08:25 11:58 11:58 WBC (3.8-10.6) k/uL RBC (4.30-5.90) m/uL Hgb (13.0-17.5) gm/dL Hct (39.0-53.0) % Neutrophils # (1.3-7.7) k/uL APTT 64.8 H (22.0-30.0) sec ABG pO2 (83-108) mmHg ABG HCO3 (21-25) mmol/L ABG Total CO2 (19-24) mmol/L ABG O2 Saturation (94-97) % Sodium 146 H (137-145) mmol/L Potassium (3.5-5.1) mmol/L Chloride (98-107) mmol/L Glucose (74-99) mg/dL POC Glucose (mg/dL) 106 H (75-99) mg/dL Osmolality 313 H (280-301) mosm/kg Microbiology - Last 24 Hours (Table) 04/23/19 00:10 Blood Culture - Preliminary Blood No Growth after 24 hours 04/23/19 00:32 Blood Culture - Preliminary Blood No Growth after 24 hours Assessment and Plan Assessment: Impression: 1 cardiopulmonary arrest, exact etiology is not clear, cardiac catheterization was nondiagnostic. 2 acute hypoxic respiratory failure secondary to cardiac arrest requiring intubation and mechanical ventilation 3 anoxic brain injury is strongly suspected 4 acute kidney injury secondary to cardiac arrest and acute tubular necrosis. 5 history of obstructive sleep apnea syndrome 6 strongly doubt pulmonary embolism based on the clinical presentation and based on the initial ABG and follow-up ABG. However will continue heparin for now, and if renal status improves, will recommend CT angiogram of the chest. Recommendation: Continue ventilatory support for now, Continue Decadron, Continue nutritional support, Continue GI and DVT prophylaxis, Discontinue propofol and fentanyl once the patient is back from CT of the brain, and fully assess neurological mental status. Expected to be poor. Discontinue heparin since the CT angiogram of the chest is negative. Discussed his condition with family at bedside, and waiting to hear more on his neurological status from neurology. Discussed his condition with his father mot her and ex-. We'll continue to follow. Critical care time is 32 minutes Time with Patient: Greater than 30
--- NOTE | 2019-04-24 14:23 | P.PN ---
Subjective Progress Note Date: 04/24/19 (Delayed charting seen at 9:30 AM) Principal diagnosis: Unresponsive Patient is a 54-year-old male who is brought in via EMS. Initially EMS was called secondary to demand being found down. On EMS arrival patient was pulseless and apneic in the monitoring and evaluation advisor showed asystole. Initially he received 4 rounds of epinephrine in route to the emergency department initially with return of spontaneous circulation. This down time was expected 833 minutes including time prior to arrival. He then lost pulses again in the ambulance and CPR was resumed. Per ED documentation patient had pulses on arrival to the ER. He had a central line placed and was intubated in the emergency department. He was taken emergently to the [facility] was found have normal coronary angiogram with normal ventricular diastolic pressure. He developed hyper-tension and cardiac cath and Nitro drip was added. Initial laboratory analysis showed a white blood cell count of 15.8, positive d-dimer at 8.17, potassium of 2.8, carbon dioxide of 16, creatinine of 1.8, and glucose of 323. Plasma lactic acid was elevated at 12.8. He was profoundly acidotic with a pH of 7.18. He underwent an emergent head CT which showed loss of leblanc-white matter differentiation and some cerebral edema. Echocardiogram showed preserved ejection fraction with no signs of hypokinesis. Lower extremity venous Dopplers were negative. History on Decadron for his cerebral edema. He was seen by neurology and mannitol was added, EEG was performed which was consistent with anoxic encephalopathy. He underwent abdominal ultrasound which showed gallbladder sludge, cholelithiasis, and hepatic steatosis with probable focal fatty sparing around the gallbladder fossa. He was started on a heparin drip with concern for pulmonary embolism. Per nursing report on 04/23 and sedation was weaned he became very tachypneic and agitated and difficult follows increased. Patient seen and examined at bedside. He is nonresponsive on vent. Objective - Vital Signs Vital signs: Vital Signs Temp 97.5 F L 04/24/19 08:00 Pulse 80 04/24/19 12:00 Resp 20 04/24/19 12:00 BP 135/81 04/24/19 12:00 Pulse Ox 93 L 04/24/19 12:00 Intake & Output 04/23/19 04/24/19 04/24/19 18:59 06:59 18:59 Intake Total 2444.795 3138.930 1091.976 Output Total 2410 2035 965 Balance 34.795 1103.930 126.976 Weight 72.5 kg 75.2 kg Intake: IV 1260 2018.8 714.5 .9 960 1440 600 Mannitol 20% Pmx 150 ml @ 450 300 mls/hr IV Q6H [facility] Rx #:[id number] Piperacillin-Tazobactam 3 100 .375 gm In Sodium Chloride 0.9% 100 ml @ 25 mls/hr IVPB Q8HR [facility] Rx# :[id number] Potassium Phosphate 10 200 mmol In Sodium Chloride 0 .9% 100 ml @ 50 mls/hr IV Q2H [facility] Rx#:[id number] fentaNYL (PF) 1,000 mcg 28.8 14.5 In Sodium Chloride 0.9% 80 ml @ 0.25 MCG/KG/HR 2. 465 mls/hr IV .Q24H [facility] Rx#:[id number] levETIRAcetam IV 750 mg 100 100 In Sodium Chloride 0.9% 100 ml @ 400 mls/hr IVPB Q12HR [facility] Rx#:[id number] Intake, IV Titration 1184.795 740.130 161.476 Amount Heparin Sod,Pork in 0.45% 115.377 NaCl 25,000 unit In 0.45 % NaCl 1 250ml.bag @ 18 UNITS/KG/HR 17.75 mls/hr IV .Q14H6M [facility] Rx#: [id number] Heparin Sod,Pork in 0.45% 50.28 246.986 NaCl 25,000 unit In 0.45 % NaCl 1 250ml.bag @ 23. 123 UNITS/KG/HR 16.764 mls/hr IV .[id number] [facility] Rx #:[id number] Mannitol 20% Pmx 150 ml @ 150 300 mls/hr IV Q6H [facility] Rx #:[id number] Propofol 1,000 mg In 68.488 Empty Bag 1 bag @ Titrate IV .Q0M [facility] Rx#: [id number] Propofol 1,000 mg In 91.35 370.244 161.476 Empty Bag 1 bag @ Titrate IV .Q0M [facility] Rx#: [id number] Sodium Chloride 0.9% 1, 600 120 000 ml @ 120 mls/hr IV . Q8H20M [facility] Rx#:[id number] fentaNYL (PF) 1,000 mcg 3.5 In Sodium Chloride 0.9% 80 ml @ 0.25 MCG/KG/HR 2. 465 mls/hr IV .Q24H [facility] Rx#:[id number] fentaNYL (PF) 1,000 mcg 5.80 2.9 In Sodium Chloride 0.9% 80 ml @ 0.5 MCG/KG/HR 3. 625 mls/hr IV .Q24H [facility] Rx#:[id number] levETIRAcetam IV 1,000 mg 100 In Saline 1 100ml.bag @ 400 mls/hr IVPB ONCE [facility] Rx#:[id number] Tube Feeding 290 186 Other 90 30 Output: Gastric Drainage 700 100 Urine 1710 1935 965 Other: Voiding Method Indwelling Catheter Indwelling Catheter Indwelling Catheter ABP, PAP, CO, CI - Last Documented Arterial Blood Pressure 52/23 - Exam General: ill appearing, no distress, appears at stated age Derm: warm, dry Head: multiple abrasions right forehead, normocephalic, symmetric Eyes: Pupils pinpoint, not following light, no lid lag, anicteric sclera Mouth: no lip lesion, mucus membranes dry, ET tube in place Cardiovascular: S1S2 reg, no murmur, positive posterior tibial pulse bilateral, Lungs: Course bs bilateral on vent, no rhonchi, no rales , no accessory muscle use Abdominal: soft, nontender to palpation, no guarding, no appreciable organomegaly Ext: no gross muscle atrophy, no edema, no contractures Neuro: sedated on vent, No withdrawal to pain but on sedation, breathing over vent no cough Psych: sedated on vent Urogential: teixeira in place, yellow urine - Labs CBC & Chem 7: 04/24/19 05:13 04/24/19 11:58 Labs: Abnormal Lab Results - Last 24 Hours (Table) 04/23/19 04/23/19 04/23/19 Range/Units 14:20 16:27 20:13 WBC (3.8-10.6) k/uL RBC (4.30-5.90) m/uL Hgb (13.0-17.5) gm/dL Hct (39.0-53.0) % Neutrophils # (1.3-7.7) k/uL APTT 44.5 H (22.0-30.0) sec ABG pO2 (83-108) mmHg ABG HCO3 (21-25) mmol/L ABG Total CO2 (19-24) mmol/L ABG O2 Saturation (94-97) % Sodium (137-145) mmol/L Potassium (3.5-5.1) mmol/L Chloride (98-107) mmol/L Glucose (74-99) mg/dL POC Glucose (mg/dL) 130 H 133 H (75-99) mg/dL Osmolality (280-301) mosm/kg 04/23/19 04/23/19 04/23/19 Range/Units 20:22 20:22 23:45 WBC (3.8-10.6) k/uL RBC (4.30-5.90) m/uL Hgb (13.0-17.5) gm/dL Hct (39.0-53.0) % Neutrophils # (1.3-7.7) k/uL APTT 59.8 H (22.0-30.0) sec ABG pO2 (83-108) mmHg ABG HCO3 (21-25) mmol/L ABG Total CO2 (19-24) mmol/L ABG O2 Saturation (94-97) % Sodium (137-145) mmol/L Potassium (3.5-5.1) mmol/L Chloride (98-107) mmol/L Glucose (74-99) mg/dL POC Glucose (mg/dL) 140 H (75-99) mg/dL Osmolality 302 H (280-301) mosm/kg 04/24/19 04/24/19 04/24/19 Range/Units 01:13 05:13 05:13 WBC 15.6 H (3.8-10.6) k/uL RBC 4.23 L (4.30-5.90) m/uL Hgb 12.3 L (13.0-17.5) gm/dL Hct 36.5 L (39.0-53.0) % Neutrophils # 13.4 H (1.3-7.7) k/uL APTT (22.0-30.0) sec ABG pO2 (83-108) mmHg ABG HCO3 (21-25) mmol/L ABG Total CO2 (19-24) mmol/L ABG O2 Saturation (94-97) % Sodium 146 H 146 H (137-145) mmol/L Potassium 3.1 L (3.5-5.1) mmol/L Chloride 114 H (98-107) mmol/L Glucose 138 H (74-99) mg/dL POC Glucose (mg/dL) (75-99) mg/dL Osmolality 309 H 309 H (280-301) mosm/kg 04/24/19 04/24/19 04/24/19 Range/Units 05:13 05:52 07:56 WBC (3.8-10.6) k/uL RBC (4.30-5.90) m/uL Hgb (13.0-17.5) gm/dL Hct (39.0-53.0) % Neutrophils # (1.3-7.7) k/uL APTT 44.7 H (22.0-30.0) sec ABG pO2 110 H (83-108) mmHg ABG HCO3 26 H (21-25) mmol/L ABG Total CO2 28 H (19-24) mmol/L ABG O2 Saturation 98.8 H (94-97) % Sodium (137-145) mmol/L Potassium (3.5-5.1) mmol/L Chloride (98-107) mmol/L Glucose (74-99) mg/dL POC Glucose (mg/dL) 131 H (75-99) mg/dL Osmolality (280-301) mosm/kg 04/24/19 04/24/19 04/24/19 Range/Units 08:25 11:58 11:58 WBC (3.8-10.6) k/uL RBC (4.30-5.90) m/uL Hgb (13.0-17.5) gm/dL Hct (39.0-53.0) % Neutrophils # (1.3-7.7) k/uL APTT 64.8 H (22.0-30.0) sec ABG pO2 (83-108) mmHg ABG HCO3 (21-25) mmol/L ABG Total CO2 (19-24) mmol/L ABG O2 Saturation (94-97) % Sodium 146 H (137-145) mmol/L Potassium (3.5-5.1) mmol/L Chloride (98-107) mmol/L Glucose (74-99) mg/dL POC Glucose (mg/dL) 106 H (75-99) mg/dL Osmolality 313 H (280-301) mosm/kg Microbiology - Last 24 Hours (Table) 04/23/19 00:10 Blood Culture - Preliminary Blood No Growth after 24 hours 04/23/19 00:32 Blood Culture - Preliminary Blood No Growth after 24 hours Assessment and Plan Assessment: Aborted sudden cardiac with anoxic encephalopathy -Repeat CT pending -Neurology recommendations appreciated, EEG with signs of anoxic encephalopathy -Cardiac cath clean, echo with preserved EF -Critical care recs appreciated - keppra for seizure prophylaxis - mannitol Acute hypoxic respiratory failure secondary to above -Management per critical care Leukocytosis, reactive -Improving -Follow CBC MALATHI, likely ATN -Improving -Continue with IV fluids Hyperglycemia, reactive -A1c 6 -Sliding-scale insulin -Follow blood sugars Elevated d-dimer with concern for possible pulmonary embolism -Continue heparin drip -CTA today GO - CPAP at baseline Respiratory acidosis, Resolved DVT prophylaxis: heparin gtt Discussed with: nursing, Dr. Mock,and family Anticipated discharge: undetermined Anticipated discharge place: undetermined A total of 35 minutes was spent on the care of this complex patient more than 50% of the time was spent in counseling and care coordination.
--- NOTE | 2019-04-24 15:18 | P.PN ---
Subjective Progress Note Date: 04/24/19 Principal diagnosis: Anoxic encephalopathy s/p cardiac arrest and prolonged downtime/resuscitation Repeat CT Head. Multiple family members including LNOK at bedside with questions. Patients remains unresponsive. Objective - Vital Signs Vital signs: Vital Signs Temp 97.5 F L 04/24/19 08:00 Pulse 77 04/24/19 14:00 Resp 21 04/24/19 14:00 BP 115/67 04/24/19 14:00 Pulse Ox 94 L 04/24/19 14:00 Intake & Output 04/23/19 04/24/19 04/24/19 18:59 06:59 18:59 Intake Total 2444.795 3138.930 1627.810 Output Total 2410 2035 1185 Balance 34.795 1103.930 442.810 Weight 72.5 kg 75.2 kg Intake: IV 1260 2018.8 1110.3 .9 960 1440 840 Mannitol 20% Pmx 150 ml @ 450 150 300 mls/hr IV Q6H [facility] Rx #:[id number] Piperacillin-Tazobactam 3 100 .375 gm In Sodium Chloride 0.9% 100 ml @ 25 mls/hr IVPB Q8HR [facility] Rx# :[id number] Potassium Phosphate 10 200 mmol In Sodium Chloride 0 .9% 100 ml @ 50 mls/hr IV Q2H [facility] Rx#:[id number] fentaNYL (PF) 1,000 mcg 28.8 20.3 In Sodium Chloride 0.9% 80 ml @ 0.25 MCG/KG/HR 2. 465 mls/hr IV .Q24H [facility] Rx#:[id number] levETIRAcetam IV 750 mg 100 100 In Sodium Chloride 0.9% 100 ml @ 400 mls/hr IVPB Q12HR [facility] Rx#:[id number] Intake, IV Titration 1184.795 740.130 205.510 Amount Heparin Sod,Pork in 0.45% 115.377 NaCl 25,000 unit In 0.45 % NaCl 1 250ml.bag @ 18 UNITS/KG/HR 17.75 mls/hr IV .Q14H6M [facility] Rx#: [id number] Heparin Sod,Pork in 0.45% 50.28 246.986 NaCl 25,000 unit In 0.45 % NaCl 1 250ml.bag @ 23. 123 UNITS/KG/HR 16.764 mls/hr IV .[id number] [facility] Rx #:[id number] Mannitol 20% Pmx 150 ml @ 150 300 mls/hr IV Q6H [facility] Rx #:[id number] Propofol 1,000 mg In 68.488 Empty Bag 1 bag @ Titrate IV .Q0M [facility] Rx#: [id number] Propofol 1,000 mg In 91.35 370.244 167.266 Empty Bag 1 bag @ Titrate IV .Q0M [facility] Rx#: [id number] Sodium Chloride 0.9% 1, 600 120 000 ml @ 120 mls/hr IV . Q8H20M [facility] Rx#:[id number] fentaNYL (PF) 1,000 mcg 3.5 In Sodium Chloride 0.9% 80 ml @ 0.25 MCG/KG/HR 2. 465 mls/hr IV .Q24H [facility] Rx#:[id number] fentaNYL (PF) 1,000 mcg 5.80 2.9 38.244 In Sodium Chloride 0.9% 80 ml @ 0.5 MCG/KG/HR 3. 625 mls/hr IV .Q24H [facility] Rx#:[id number] levETIRAcetam IV 1,000 mg 100 In Saline 1 100ml.bag @ 400 mls/hr IVPB [facility] Rx#:[id number] Tube Feeding 290 252 Other 90 60 Output: Gastric Drainage 700 100 Urine 1710 1935 1185 Other: Voiding Method Indwelling Catheter Indwelling Catheter Indwelling Catheter ABP, PAP, CO, CI - Last Documented Arterial Blood Pressure 52/23 - Exam Gen NAD Intubated and sedated HEENT NCAT Sclera without icterus ETT in place Neck Supple no carotid bruit Cor RRR no m/r/g Lungs Coarse BS bilaterally Abd Soft NTND +BS Ext Warm to touch No edema Neuro MS GCS 3 CN Pinpoint pupils unreactive to light No blink to threat No Doll's No Corneal's No Grimace No gag Motor Normal bulk Tone flaccid No tremors, asterixis, myoclonus or other adventitious movements No spontaneous motor movements Sens No motor response or change in HR or pupillary size to nailbed stim x4 or to sternal rub Coord Cannot test due to AMS DTRs Tr throughout Toes mute bilaterally no ankle clonus Gait Cannot test due to coma - Labs CBC & Chem 7: 04/24/19 05:13 04/24/19 11:58 Labs: Abnormal Lab Results - Last 24 Hours (Table) 04/23/19 04/23/19 04/23/19 Range/Units 16:27 20:13 20:22 WBC (3.8-10.6) k/uL RBC (4.30-5.90) m/uL Hgb (13.0-17.5) gm/dL Hct (39.0-53.0) % Neutrophils # (1.3-7.7) k/uL APTT (22.0-30.0) sec ABG pO2 (83-108) mmHg ABG HCO3 (21-25) mmol/L ABG Total CO2 (19-24) mmol/L ABG O2 Saturation (94-97) % Sodium (137-145) mmol/L Potassium (3.5-5.1) mmol/L Chloride (98-107) mmol/L Glucose (74-99) mg/dL POC Glucose (mg/dL) 130 H 133 H (75-99) mg/dL Osmolality 302 H (280-301) mosm/kg 04/23/19 04/23/19 04/24/19 Range/Units 20:22 23:45 01:13 WBC (3.8-10.6) k/uL RBC (4.30-5.90) m/uL Hgb (13.0-17.5) gm/dL Hct (39.0-53.0) % Neutrophils # (1.3-7.7) k/uL APTT 59.8 H (22.0-30.0) sec ABG pO2 (83-108) mmHg ABG HCO3 (21-25) mmol/L ABG Total CO2 (19-24) mmol/L ABG O2 Saturation (94-97) % Sodium 146 H (137-145) mmol/L Potassium (3.5-5.1) mmol/L Chloride (98-107) mmol/L Glucose (74-99) mg/dL POC Glucose (mg/dL) 140 H (75-99) mg/dL Osmolality 309 H (280-301) mosm/kg 04/24/19 04/24/19 04/24/19 Range/Units 05:13 05:13 05:13 WBC 15.6 H (3.8-10.6) k/uL RBC 4.23 L (4.30-5.90) m/uL Hgb 12.3 L (13.0-17.5) gm/dL Hct 36.5 L (39.0-53.0) % Neutrophils # 13.4 H (1.3-7.7) k/uL APTT 44.7 H (22.0-30.0) sec ABG pO2 (83-108) mmHg ABG HCO3 (21-25) mmol/L ABG Total CO2 (19-24) mmol/L ABG O2 Saturation (94-97) % Sodium 146 H (137-145) mmol/L Potassium 3.1 L (3.5-5.1) mmol/L Chloride 114 H (98-107) mmol/L Glucose 138 H (74-99) mg/dL POC Glucose (mg/dL) (75-99) mg/dL Osmolality 309 H (280-301) mosm/kg 04/24/19 04/24/19 04/24/19 Range/Units 05:52 07:56 08:25 WBC (3.8-10.6) k/uL RBC (4.30-5.90) m/uL Hgb (13.0-17.5) gm/dL Hct (39.0-53.0) % Neutrophils # (1.3-7.7) k/uL APTT (22.0-30.0) sec ABG pO2 110 H (83-108) mmHg ABG HCO3 26 H (21-25) mmol/L ABG Total CO2 28 H (19-24) mmol/L ABG O2 Saturation 98.8 H (94-97) % Sodium (137-145) mmol/L Potassium (3.5-5.1) mmol/L Chloride (98-107) mmol/L Glucose (74-99) mg/dL POC Glucose (mg/dL) 131 H 106 H (75-99) mg/dL Osmolality (280-301) mosm/kg 04/24/19 04/24/19 Range/Units 11:58 11:58 WBC (3.8-10.6) k/uL RBC (4.30-5.90) m/uL Hgb (13.0-17.5) gm/dL Hct (39.0-53.0) % Neutrophils # (1.3-7.7) k/uL APTT 64.8 H (22.0-30.0) sec ABG pO2 (83-108) mmHg ABG HCO3 (21-25) mmol/L ABG Total CO2 (19-24) mmol/L ABG O2 Saturation (94-97) % Sodium 146 H (137-145) mmol/L Potassium (3.5-5.1) mmol/L Chloride (98-107) mmol/L Glucose (74-99) mg/dL POC Glucose (mg/dL) (75-99) mg/dL Osmolality 313 H (280-301) mosm/kg Microbiology - Last 24 Hours (Table) 04/23/19 00:10 Blood Culture - Preliminary Blood No Growth after 24 hours 04/23/19 00:32 Blood Culture - Preliminary Blood No Growth after 24 hours - Imaging and Cardiology CT Head wo cont 04/24/19. Continued diffuse sulcal effacement. No ICH. I have reviewed neuroimages myself. Assessment and Plan Assessment: Anoxic encephalopathy Cerebral cytotoxic edema Plan: -Repeat CT head shows continued diffuse cerebral edema -EEG yesterday showed paroxysms of spike/wave discharges c/w anoxic brain injury -Together with his prolonged downtime/resuscitation, it is likely that he has sustained significant neurological damage -Prognosis guarded for meaningful neurological recovery given prolonged downtime/resuscitation and lack of clinical response/improvement with maximal medical management -Can continue Mannitol and Keppra until goals of care changed -Extensive discussion held with patient's family and ICU staff. All questions answered. Thank you again for this consultation. Please call with ?. Time with Patient: Greater than 30 (Time spent in direct patient care, greater than 50% of which was spent in [id number] counseling and coordination of care: 35 minutes)
[2019-04-24 15:47] LABS: Glucose,Whole Blood 110 mg/dL (75-99)
[2019-04-24 17:54] LABS: Sodium 147 mmol/L (137-145)
[2019-04-24 22:43] LABS: Basophils % (A) 0 %; Eosinophils # (A) 0.1 k/uL (0-0.7); Eosinophils % (A) 1 %; HGB 11.1 gm/dL (13.0-17.5); Lymphocytes # (A) 0.7 k/uL (1.0-4.8); Lymphocytes % (A) 6 %; MCH 28.7 pg (25.0-35.0); MCHC 32.7 g/dL (31.0-37.0); MCV 87.7 fL (80.0-100.0); Mean Platelet Volume 6.8; Monocytes # (A) 0.5 k/uL (0-1.0); Monocytes % (A) 4 %; Neutrophils % (A) 88 %; Platelet Count 244 k/uL (150-450); RBC 3.88 m/uL (4.30-5.90); RDW 13.8 % (11.5-15.5); WBC 12.4 k/uL (3.8-10.6)
[2019-04-24 22:44] LABS: Glucose,Whole Blood 111 mg/dL (75-99)
[2019-04-24 22:50] LABS: Albumin 2.8 g/dL (3.5-5.0); Anion Gap 4 mmol/L; Carbon Dioxide 27 mmol/L (22-30); Chloride 118 mmol/L (98-107); Glucose 109 mg/dL (74-99); Phosphorus 2.4 mg/dL (2.5-4.5); Potassium 3.3 mmol/L (3.5-5.1); Sodium 149 mmol/L (137-145)
[2019-04-24 22:52] LABS: ALT 37 U/L (21-72); AST 50 U/L (17-59); African American GFR (CKD) >90 (>60 ml/min/1.73 sqM); Alkaline Phosphatase 138 U/L (38-126); Bilirubin, Delta 0.2 mg/dL (0.0-0.2); Bilirubin,Unconjugated 0.3 mg/dL (0.0-1.1); Blood Urea Nitrogen 14 mg/dL (9-20); Calcium 8.7 mg/dL (8.4-10.2); Non-African American GFR(CKD) 78 (>60 ml/min/1.73 sqM); Total Bilirubin 0.5 mg/dL (0.2-1.3)
[2019-04-24 22:58] LABS: INR 0.9 (<1.2); Prothrombin Time 9.8 sec (9.0-12.0)
[2019-04-24 22:59] LABS: Partial Thromboplastin Time 18.3 sec (22.0-30.0)
[2019-04-25] MEDS: PROPOFOL 1,000 MG in EMPTY BAG 1 BAG IV SCH ×6 (01:30→16:39)
[2019-04-25 05:07] LABS: Basophils % (A) 0 %; Eosinophils # (A) 0.1 k/uL (0-0.7); Eosinophils % (A) 1 %; HCT 32.8 % (39.0-53.0); HGB 10.9 gm/dL (13.0-17.5); Lymphocytes # (A) 0.8 k/uL (1.0-4.8); Lymphocytes % (A) 7 %; MCH 29.2 pg (25.0-35.0); MCHC 33.3 g/dL (31.0-37.0); MCV 87.7 fL (80.0-100.0); Mean Platelet Volume 7.1; Monocytes # (A) 0.4 k/uL (0-1.0); Monocytes % (A) 4 %; Neutrophils # (A) 9.1 k/uL (1.3-7.7); Neutrophils % (A) 88 %; Platelet Count 219 k/uL (150-450); RBC 3.74 m/uL (4.30-5.90); RDW 13.8 % (11.5-15.5); WBC 10.4 k/uL (3.8-10.6)
[2019-04-25 05:15] LABS: Albumin 2.7 g/dL (3.5-5.0); Calcium 8.5 mg/dL (8.4-10.2); Potassium 3.2 mmol/L (3.5-5.1); Total Bilirubin 0.5 mg/dL (0.2-1.3); Total Protein 4.8 g/dL (6.3-8.2)
[2019-04-25 05:45] LABS: Phosphorus 2.9 mg/dL (2.5-4.5)
[2019-04-25 05:50] LABS: INR 0.9 (<1.2); Partial Thromboplastin Time 22.3 sec (22.0-30.0)
[2019-04-25] MEDS: POTASSIUM CHLORIDE 20 MEQ in WATER FOR INJECTION 1 100ML.BAG IVPB SCH ×5 (06:37→20:05)
[2019-04-25] MEDS: MANNITOL 20% IV SCH ×3 (06:37→12:15)
[2019-04-25 07:56] LABS: ABG HCO3 28 mmol/L (21-25); ABG Oxygen Saturation 93.1 % (94-97); ABG PCO2 32 mmHg (35-45); ABG PH 7.54 (7.35-7.45); ABG TCO2 29 mmol/L (19-24); Allen Test Performed? Yes
[2019-04-25 07:59] LABS: ABG PO2 58 mmHg (83-108)
--- NOTE | 2019-04-25 08:19 | XR ---
EXAMINATION TYPE: XR chest 1V portable DATE OF EXAM: 04/25/2019 COMPARISON: 04/24/2019 HISTORY: Tube placement TECHNIQUE: Single frontal view of the chest is obtained. FINDINGS: Bilateral consolidation greater on the left with left-sided pleural effusion noted. ET and NG tubes stable. No pneumothorax. Heart size stable. IMPRESSION: Stable bilateral areas of infiltrate and left-sided effusion. Correlate for pneumonia.
--- NOTE | 2019-04-25 08:35 | P.PN ---
Subjective Progress Note Date: 04/25/19 Principal diagnosis: Anoxic encephalopathy s/p cardiac arrest and prolonged downtime/resuscitation Family met with organ donation. Remains vented. No acute neuro events O/N. Mannitol held this am due to Osm 320. No other neuro c/o. Objective - Vital Signs Vital signs: Vital Signs Temp 99.0 F 04/25/19 08:00 Pulse 72 04/25/19 08:00 Resp 28 H 04/25/19 08:00 BP 120/55 04/25/19 08:00 Pulse Ox 92 L 04/25/19 08:00 Intake & Output 04/24/19 04/25/19 04/25/19 18:59 06:59 18:59 Intake Total 2721.051 2447 311.438 Output Total 1935 2830 185 Balance 786.051 -383 126.438 Weight 75 kg Intake: IV 1740.3 1690 240 .9 1320 1440 240 Mannitol 20% Pmx 150 ml @ 300 150 300 mls/hr IV Q6H [facility] Rx #:[id number] fentaNYL (PF) 1,000 mcg 20.3 In Sodium Chloride 0.9% 80 ml @ 0.25 MCG/KG/HR 2. 465 mls/hr IV .Q24H [facility] Rx#:[id number] levETIRAcetam IV 750 mg 100 100 In Sodium Chloride 0.9% 100 ml @ 400 mls/hr IVPB Q12HR [facility] Rx#:[id number] Intake, IV Titration 473.751 400 71.438 Amount Heparin Sod,Pork in 0.45% 229.583 NaCl 25,000 unit In 0.45 % NaCl 1 250ml.bag @ 23. 123 UNITS/KG/HR 16.764 mls/hr IV .[id number] [facility] Rx #:[id number] Propofol 1,000 mg In 203.024 400 71.438 Empty Bag 1 bag @ Titrate IV .Q0M [facility] Rx#: [id number] fentaNYL (PF) 1,000 mcg 41.144 In Sodium Chloride 0.9% 80 ml @ 0.5 MCG/KG/HR 3. 625 mls/hr IV .Q24H [facility] Rx#:[id number] Tube Feeding 417 297 Other 90 60 Output: Gastric Drainage 1500 Urine 1935 1330 185 Other: Voiding Method Indwelling Catheter Indwelling Catheter ABP, PAP, CO, CI - Last Documented Arterial Blood Pressure 52/23 - Exam Gen NAD Intubated and sedated HEENT NCAT Sclera without icterus ETT in place Neck Supple no carotid bruit Cor RRR no m/r/g Lungs Coarse BS bilaterally Abd Soft NTND +BS Ext Warm to touch No edema Neuro MS GCS 3 CN Pinpoint pupils unreactive to light No blink to threat No Doll's No Corneal's No Grimace Does overbreathe the vent Motor Normal bulk Tone flaccid No tremors, asterixis, myoclonus or other adventitious movements No spontaneous motor movements Sens No motor response or change in HR or pupillary size to nailbed stim x4 or to sternal rub Coord Cannot test due to AMS DTRs Tr throughout Toes mute bilaterally no ankle clonus Gait Cannot test due to coma - Labs CBC & Chem 7: 04/25/19 04:55 04/25/19 04:55 Labs: Abnormal Lab Results - Last 24 Hours (Table) 04/24/19 04/24/19 04/24/19 Range/Units 11:58 11:58 15:45 WBC (3.8-10.6) k/uL RBC (4.30-5.90) m/uL Hgb (13.0-17.5) gm/dL Hct (39.0-53.0) % Neutrophils # (1.3-7.7) k/uL Lymphocytes # (1.0-4.8) k/uL APTT 64.8 H (22.0-30.0) sec ABG pH (7.35-7.45) ABG pCO2 (35-45) mmHg ABG pO2 (83-108) mmHg ABG HCO3 (21-25) mmol/L ABG Total CO2 (19-24) mmol/L ABG O2 Saturation (94-97) % Sodium 146 H (137-145) mmol/L Potassium (3.5-5.1) mmol/L Chloride (98-107) mmol/L Glucose (74-99) mg/dL POC Glucose (mg/dL) 110 H (75-99) mg/dL Osmolality 313 H (280-301) mosm/kg Phosphorus (2.5-4.5) mg/dL Alkaline Phosphatase (38-126) U/L Total Protein (6.3-8.2) g/dL Albumin (3.5-5.0) g/dL 04/24/19 04/24/19 04/24/19 Range/Units 17:05 22:15 22:15 WBC (3.8-10.6) k/uL RBC (4.30-5.90) m/uL Hgb (13.0-17.5) gm/dL Hct (39.0-53.0) % Neutrophils # (1.3-7.7) k/uL Lymphocytes # (1.0-4.8) k/uL APTT 18.3 L (22.0-30.0) sec ABG pH (7.35-7.45) ABG pCO2 (35-45) mmHg ABG pO2 (83-108) mmHg ABG HCO3 (21-25) mmol/L ABG Total CO2 (19-24) mmol/L ABG O2 Saturation (94-97) % Sodium 147 H 149 H (137-145) mmol/L Potassium 3.3 L (3.5-5.1) mmol/L Chloride 118 H (98-107) mmol/L Glucose 109 H (74-99) mg/dL POC Glucose (mg/dL) (75-99) mg/dL Osmolality 314 H (280-301) mosm/kg Phosphorus 2.4 L (2.5-4.5) mg/dL Alkaline Phosphatase 138 H (38-126) U/L Total Protein 5.0 L (6.3-8.2) g/dL Albumin 2.8 L (3.5-5.0) g/dL 04/24/19 04/24/19 04/25/19 Range/Units 22:15 22:41 04:55 WBC 12.4 H (3.8-10.6) k/uL RBC 3.88 L 3.74 L (4.30-5.90) m/uL Hgb 11.1 L 10.9 L (13.0-17.5) gm/dL Hct 34.0 L 32.8 L (39.0-53.0) % Neutrophils # 11.0 H 9.1 H (1.3-7.7) k/uL Lymphocytes # 0.7 L 0.8 L (1.0-4.8) k/uL APTT (22.0-30.0) sec ABG pH (7.35-7.45) ABG pCO2 (35-45) mmHg ABG pO2 (83-108) mmHg ABG HCO3 (21-25) mmol/L ABG Total CO2 (19-24) mmol/L ABG O2 Saturation (94-97) % Sodium (137-145) mmol/L Potassium (3.5-5.1) mmol/L Chloride (98-107) mmol/L Glucose (74-99) mg/dL POC Glucose (mg/dL) 111 H (75-99) mg/dL Osmolality (280-301) mosm/kg Phosphorus (2.5-4.5) mg/dL Alkaline Phosphatase (38-126) U/L Total Protein (6.3-8.2) g/dL Albumin (3.5-5.0) g/dL 04/25/19 04/25/19 04/25/19 Range/Units 04:55 04:55 07:50 WBC (3.8-10.6) k/uL RBC (4.30-5.90) m/uL Hgb (13.0-17.5) gm/dL Hct (39.0-53.0) % Neutrophils # (1.3-7.7) k/uL Lymphocytes # (1.0-4.8) k/uL APTT (22.0-30.0) sec ABG pH 7.54 H (7.35-7.45) ABG pCO2 32 L (35-45) mmHg ABG pO2 58 L* (83-108) mmHg ABG HCO3 28 H (21-25) mmol/L ABG Total CO2 29 H (19-24) mmol/L ABG O2 Saturation 93.1 L (94-97) % Sodium 150 H (137-145) mmol/L Potassium 3.2 L (3.5-5.1) mmol/L Chloride 118 H (98-107) mmol/L Glucose 106 H (74-99) mg/dL POC Glucose (mg/dL) (75-99) mg/dL Osmolality 320 H (280-301) mosm/kg Phosphorus (2.5-4.5) mg/dL Alkaline Phosphatase 129 H (38-126) U/L Total Protein 4.8 L (6.3-8.2) g/dL Albumin 2.7 L (3.5-5.0) g/dL Microbiology - Last 24 Hours (Table) 04/23/19 00:10 Blood Culture - Preliminary Blood No Growth after 48 hours 04/23/19 00:32 Blood Culture - Preliminary Blood No Growth after 48 hours Assessment and Plan Assessment: Anoxic encephalopathy Cerebral cytotoxic edema Plan: -Repeat CT head shows continued diffuse cerebral edema -EEG shows paroxysms of spike/wave discharges c/w anoxic brain injury -Together with his prolonged downtime/resuscitation, it is likely that he has sustained significant neurological damage -Prognosis guarded for meaningful neurological recovery given prolonged downtime/resuscitation and lack of clinical response/improvement with maximal medical management -Can continue Mannitol (hold for Na >155 or Osm >320) and Keppra until goals of care changed -d/w ICU staff. All questions answered. -Neurology will be available again 04/28/19 at 8am. Please call with ?. Thank you again for this consultation. Time with Patient: Less than 30 (Time spent in direct patient care/coordination of care: 25 minutes)
[2019-04-25] MEDS: CHLORHEXIDINE GLUCONATE 15 ML CUP MUCOUS MEM SCH (09:14)
[2019-04-25] MEDS: levETIRAcetam IV 750 MG in SODIUM CHLORIDE 0.9% 100 ML IVPB SCH (09:15)
[2019-04-25] MEDS: fentaNYL (PF) 1,000 MCG in SODIUM CHLORIDE 0.9% 80 ML IV SCH ×2 (09:17→12:01)
[2019-04-25 09:24] LABS: Glucose,Whole Blood 100 mg/dL (75-99)
[2019-04-25] MEDS: INSULIN ASPART (NovoLOG) 100 UNIT/ML VIAL SQ SCH ×2 (10:17→17:07)
--- NOTE | 2019-04-25 11:40 | PCN ---
PROCEDURE NOTE The operative report is placement of a right radial arterial line. PREOPERATIVE DIAGNOSIS: Cardiac arrest and anoxic brain injury. POSTOPERATIVE DIAGNOSIS: Cardiac arrest and anoxic brain injury. ANESTHESIA USED: None deployed. PROCEDURE: The patient was placed in a supine position, the right arm was placed on a bedside table, the right wrist was prepared in a sterile fashion and drapes were applied. The right radial artery was palpated, cannulated easily, a guidewire was placed. A Cook's catheter was inserted over the guidewire, and the guidewire was removed. Good blood flow and good wave form were noted. The line was secured using 3.0 silk sutures. No evidence of any complications. MMODL / IJN: [id number] /
[2019-04-25 11:49] LABS: Sodium 152 mmol/L (137-145)
--- NOTE | 2019-04-25 12:57 | P.PN ---
Subjective Progress Note Date: 04/25/19 Principal diagnosis: Cardiac arrest, anoxic brain injury This is a 54-year-old white male, smoker, history of obstructive sleep apnea, donated plasma earlier on the day of admission, patient presented to the ER via EMS after he had a sudden collapse. CPR was initiated by his family member and within 10 minutes EMS arrived. CPR was continued by EMS, and went on for at least 20 minutes. Based on the chart, patient was in asystole for over 30 minutes. Upon arrival to the ER, CPR was resumed for a short period of time, the patient was intubated, and a central line was placed by the ER physician. His EKG on presentation was abnormal showing ST depression in multiple leads, and ST elevation in aVR hence the patient was seen by cardiology upon arrival, and he was taken straight to cardiac catheterization. His cardiac catheterization report came back normal. Patient was transferred from the cardiac catheterization lab to the ICU. Presently the patient is on mechanical ventilation, his ventilator settings are tidal volume of 500, FiO2 of 40%, assist control rate of 20, and PEEP of 5. Patient is on propofol, fentanyl, he is also on heparin and IV fluid at 1 20 mL per hour. Heparin was initiated by the admitting physician mostly because of the concern of possible pulmonary embolism. His venous Doppler is negative, his clinical presentation is clearly not a presentation of pulmonary embolism, however will eventually recommend a CT angiogram of the chest in the next [address] of the brain showed indistinct leblanc white differentiation consistent with cerebral edema/hypoxic ischemic injury. Seen by neurology on consultation, felt that the patient clearly has cerebral cytotoxic edema and anoxic encephalopathy. Decadron was already initiated, and mannitol was recommended by neurology on the case. Also recommended repeat CT of the head in the morning. And recommended EEG which is pending. Reevaluated today on 04/24/2019, patient remains in the ICU, mechanically ventilated. His ventilator settings are tidal volume of 500 assist control rate of 20 FiO2 40% and PEEP of 5. ABG this morning showed a pO2 of 110 pCO2 of 38 pH of 7.45. Potassium is a bit low at 3.1 being corrected as per protocol. CBC is relatively normal. His urine drug screen from admission was negative. Patient remains on propofol, he is also on fentanyl, and I plan to discontinue both and assess neurological status after coming back from CT of the brain which was ordered to be done today by neurology. Overall the patient is about the same, he is unresponsive, pupils are nonreactive, and no corneal reflexes noted. Family was updated on his condition, and awaiting input from the neurologist to discuss his condition with the family again. Patient is hemodynamically stable, has good urine output, he is on nutritional support/enteral feeding. Reevaluated today on 04/25/2019, patient remains on mechanical ventilation, no exchange underwriting consultant the last 24 hours and his neurological status. Seen by neurology today, and felt that the patient has no chance of meaningful recovery from his neurological status, and has severe anoxic brain injury. Apparently the family met with the organ donation team, and the process of organ donation has been initiated. Chest x-ray showed mostly areas of atelectasis and small left pleural effusion. I strongly doubt pneumonia. ABG this morning showed a pO2 of 58 pCO2 of 32 pH of 7.54, hence the FiO2 was increased to 50%. Sodium was noted to be elevated at 152 and potassium 3.2. Serum osmolality was elevated at 320, and that is related to mannitol. Repeat CT of the brain report was reviewed, it is mostly consistent with severe brain injury., anoxic in nature based on the presentation. EEG showed paroxysms of spike/wave discharges consistent with anoxic brain injury. Objective - Vital Signs Vital signs: Vital Signs Temp 100.0 F H 04/25/19 12:00 Pulse 76 04/25/19 12:00 Resp 27 H 04/25/19 12:00 BP 148/69 04/25/19 12:00 Pulse Ox 94 L 04/25/19 12:00 Intake & Output 04/24/19 04/25/19 04/25/19 18:59 06:59 18:59 Intake Total 2721.051 2447 1053.194 Output Total 1935 2830 545 Balance 786.051 -383 508.194 Weight 75 kg Intake: IV 1740.3 1690 820 .9 1320 1440 720 Mannitol 20% Pmx 150 ml @ 300 150 300 mls/hr IV Q6H [facility] Rx #:[id number] fentaNYL (PF) 1,000 mcg 20.3 In Sodium Chloride 0.9% 80 ml @ 0.25 MCG/KG/HR 2. 465 mls/hr IV .Q24H [facility] Rx#:[id number] levETIRAcetam IV 750 mg 100 100 100 In Sodium Chloride 0.9% 100 ml @ 400 mls/hr IVPB Q12HR [facility] Rx#:[id number] Intake, IV Titration 473.751 400 233.194 Amount Heparin Sod,Pork in 0.45% 229.583 NaCl 25,000 unit In 0.45 % NaCl 1 250ml.bag @ 23. 123 UNITS/KG/HR 16.764 mls/hr IV .[id number] [facility] Rx #:[id number] Propofol 1,000 mg In 203.024 400 171.438 Empty Bag 1 bag @ Titrate IV .Q0M [facility] Rx#: [id number] fentaNYL (PF) 1,000 mcg 41.144 61.756 In Sodium Chloride 0.9% 80 ml @ 0.5 MCG/KG/HR 3. 625 mls/hr IV .Q24H [facility] Rx#:[id number] Tube Feeding 417 297 Other 90 60 Output: Gastric Drainage 1500 Urine 1935 1330 545 Other: Voiding Method Indwelling Catheter Indwelling Catheter Indwelling Catheter ABP, PAP, CO, CI - Last Documented Arterial Blood Pressure 161/72 - Exam General: 54-year-old white male, on mechanical ventilation, Eyes: Pupils are pinpoint, no icterus, does not open eyes. ENMT: Moist mucous membranes, throat is clear, no erythema, endotracheal tube and orogastric tube are intact Neck: Supple, no neck masses, no thyromegaly. Short obese neck is noted. Lungs: Diminished breath sounds at the bases no rhonchi no wheezes. Cardiovascular: Normal S1 and S2, no S3 gallop, no murmur. Abdominal: Soft nontender no megaly no rebound no guarding. Skin: No rashes, no areas of erythema. Extremities: No clubbing edema or cyanosis, good pulses bilaterally. Neuro: Refer to full neurological exam by neurology on the case today. - Labs CBC & Chem 7: 04/25/19 04:55 04/25/19 11:23 Labs: Abnormal Lab Results - Last 24 Hours (Table) 04/24/19 04/24/19 04/24/19 Range/Units 11:58 15:45 17:05 WBC (3.8-10.6) k/uL RBC (4.30-5.90) m/uL Hgb (13.0-17.5) gm/dL Hct (39.0-53.0) % Neutrophils # (1.3-7.7) k/uL Lymphocytes # (1.0-4.8) k/uL APTT (22.0-30.0) sec ABG pH (7.35-7.45) ABG pCO2 (35-45) mmHg ABG pO2 (83-108) mmHg ABG HCO3 (21-25) mmol/L ABG Total CO2 (19-24) mmol/L ABG O2 Saturation (94-97) % Sodium 146 H 147 H (137-145) mmol/L Potassium (3.5-5.1) mmol/L Chloride (98-107) mmol/L Glucose (74-99) mg/dL POC Glucose (mg/dL) 110 H (75-99) mg/dL Osmolality 313 H 314 H (280-301) mosm/kg Phosphorus (2.5-4.5) mg/dL Alkaline Phosphatase (38-126) U/L Total Protein (6.3-8.2) g/dL Albumin (3.5-5.0) g/dL 04/24/19 04/24/19 04/24/19 Range/Units 22:15 22:15 22:15 WBC 12.4 H (3.8-10.6) k/uL RBC 3.88 L (4.30-5.90) m/uL Hgb 11.1 L (13.0-17.5) gm/dL Hct 34.0 L (39.0-53.0) % Neutrophils # 11.0 H (1.3-7.7) k/uL Lymphocytes # 0.7 L (1.0-4.8) k/uL APTT 18.3 L (22.0-30.0) sec ABG pH (7.35-7.45) ABG pCO2 (35-45) mmHg ABG pO2 (83-108) mmHg ABG HCO3 (21-25) mmol/L ABG Total CO2 (19-24) mmol/L ABG O2 Saturation (94-97) % Sodium 149 H (137-145) mmol/L Potassium 3.3 L (3.5-5.1) mmol/L Chloride 118 H (98-107) mmol/L Glucose 109 H (74-99) mg/dL POC Glucose (mg/dL) (75-99) mg/dL Osmolality (280-301) mosm/kg Phosphorus 2.4 L (2.5-4.5) mg/dL Alkaline Phosphatase 138 H (38-126) U/L Total Protein 5.0 L (6.3-8.2) g/dL Albumin 2.8 L (3.5-5.0) g/dL 04/24/19 04/25/19 04/25/19 Range/Units 22:41 04:55 04:55 WBC (3.8-10.6) k/uL RBC 3.74 L (4.30-5.90) m/uL Hgb 10.9 L (13.0-17.5) gm/dL Hct 32.8 L (39.0-53.0) % Neutrophils # 9.1 H (1.3-7.7) k/uL Lymphocytes # 0.8 L (1.0-4.8) k/uL APTT (22.0-30.0) sec ABG pH (7.35-7.45) ABG pCO2 (35-45) mmHg ABG pO2 (83-108) mmHg ABG HCO3 (21-25) mmol/L ABG Total CO2 (19-24) mmol/L ABG O2 Saturation (94-97) % Sodium 150 H (137-145) mmol/L Potassium 3.2 L (3.5-5.1) mmol/L Chloride 118 H (98-107) mmol/L Glucose 106 H (74-99) mg/dL POC Glucose (mg/dL) 111 H (75-99) mg/dL Osmolality (280-301) mosm/kg Phosphorus (2.5-4.5) mg/dL Alkaline Phosphatase 129 H (38-126) U/L Total Protein 4.8 L (6.3-8.2) g/dL Albumin 2.7 L (3.5-5.0) g/dL 04/25/19 04/25/19 04/25/19 Range/Units 04:55 07:50 09:20 WBC (3.8-10.6) k/uL RBC (4.30-5.90) m/uL Hgb (13.0-17.5) gm/dL Hct (39.0-53.0) % Neutrophils # (1.3-7.7) k/uL Lymphocytes # (1.0-4.8) k/uL APTT (22.0-30.0) sec ABG pH 7.54 H (7.35-7.45) ABG pCO2 32 L (35-45) mmHg ABG pO2 58 L* (83-108) mmHg ABG HCO3 28 H (21-25) mmol/L ABG Total CO2 29 H (19-24) mmol/L ABG O2 Saturation 93.1 L (94-97) % Sodium (137-145) mmol/L Potassium (3.5-5.1) mmol/L Chloride (98-107) mmol/L Glucose (74-99) mg/dL POC Glucose (mg/dL) 100 H (75-99) mg/dL Osmolality 320 H (280-301) mosm/kg Phosphorus (2.5-4.5) mg/dL Alkaline Phosphatase (38-126) U/L Total Protein (6.3-8.2) g/dL Albumin (3.5-5.0) g/dL 04/25/19 Range/Units 11:23 WBC (3.8-10.6) k/uL RBC (4.30-5.90) m/uL Hgb (13.0-17.5) gm/dL Hct (39.0-53.0) % Neutrophils # (1.3-7.7) k/uL Lymphocytes # (1.0-4.8) k/uL APTT (22.0-30.0) sec ABG pH (7.35-7.45) ABG pCO2 (35-45) mmHg ABG pO2 (83-108) mmHg ABG HCO3 (21-25) mmol/L ABG Total CO2 (19-24) mmol/L ABG O2 Saturation (94-97) % Sodium 152 H (137-145) mmol/L Potassium (3.5-5.1) mmol/L Chloride (98-107) mmol/L Glucose (74-99) mg/dL POC Glucose (mg/dL) (75-99) mg/dL Osmolality 316 H (280-301) mosm/kg Phosphorus (2.5-4.5) mg/dL Alkaline Phosphatase (38-126) U/L Total Protein (6.3-8.2) g/dL Albumin (3.5-5.0) g/dL Microbiology - Last 24 Hours (Table) 04/22/19 23:30 Gram Stain - Preliminary Sputum Sputum Culture - Preliminary 04/23/19 00:10 Blood Culture - Preliminary Blood No Growth after 48 hours 04/23/19 00:32 Blood Culture - Preliminary Blood No Growth after 48 hours Assessment and Plan Assessment: Impression: 1 cardiopulmonary arrest, exact etiology is not clear, cardiac catheterization was nondiagnostic. 2 acute hypoxic respiratory failure secondary to cardiac arrest requiring intubation and mechanical ventilation 3 severe anoxic brain injury. 4 acute kidney injury secondary to cardiac arrest and acute tubular necrosis. 5 history of obstructive sleep apnea syndrome 6 strongly doubt pulmonary embolism based on the clinical presentation and based on the initial ABG and follow-up ABG. However will continue heparin for now, and if renal status improves, will recommend CT angiogram of the chest. Recommendation: Continue ventilatory support for now, patient is being evaluated for organ donation, this issue was discussed with the organ donation team family and the neurologist on the case. And they are going to proceed with organ donation. We'll sign off and see the patient on when necessary basis. Time with Patient: Less than 30
[2019-04-25 13:56] VITALS: BMI 25.1
[2019-04-25 14:26] LABS: Basophils % (A) 0 %; Eosinophils # (A) 0.1 k/uL (0-0.7); Eosinophils % (A) 1 %; HCT 31.6 % (39.0-53.0); HGB 10.7 gm/dL (13.0-17.5); Lymphocytes # (A) 0.7 k/uL (1.0-4.8); Lymphocytes % (A) 9 %; MCV 88.3 fL (80.0-100.0); Mean Platelet Volume 7.2; Monocytes # (A) 0.3 k/uL (0-1.0); Monocytes % (A) 4 %; Neutrophils % (A) 86 %; Platelet Count 226 k/uL (150-450); RBC 3.58 m/uL (4.30-5.90); RDW 14.6 % (11.5-15.5); WBC 8.2 k/uL (3.8-10.6)
[2019-04-25 14:36] LABS: Partial Thromboplastin Time 24.6 sec (22.0-30.0); Prothrombin Time 10.4 sec (9.0-12.0)
[2019-04-25 14:39] LABS: ALT 30 U/L (21-72); AST 57 U/L (17-59); African American GFR (CKD) >90 (>60 ml/min/1.73 sqM); Albumin 2.1 g/dL (3.5-5.0); Alkaline Phosphatase 116 U/L (38-126); Anion Gap 5 mmol/L; Blood Urea Nitrogen 12 mg/dL (9-20); Calcium 6.7 mg/dL (8.4-10.2); Carbon Dioxide 20 mmol/L (22-30); Chloride 126 mmol/L (98-107); Glucose 89 mg/dL (74-99); Magnesium 1.6 mg/dL (1.6-2.3); Non-African American GFR(CKD) >90 (>60 ml/min/1.73 sqM); Phosphorus 2.4 mg/dL (2.5-4.5); Sodium 151 mmol/L (137-145); Total Bilirubin 0.5 mg/dL (0.2-1.3)
[2019-04-25 14:48] LABS: Potassium 2.5 mmol/L (3.5-5.1)
[2019-04-25] MEDS ORDERED: Potassium Replacement Protocol 1 EACH MISC MISCELLANE PRN (14:50)
[2019-04-25] MEDS ORDERED: LABETALOL 5 MG/ML VIAL MDV IVP STA (15:15)
[2019-04-25 16:10] VITALS: TEMP 99.2
[2019-04-25] MEDS ORDERED: MORPHINE SULFATE 4 MG/ML SYRINGE IVP PRN (16:31)
[2019-04-25] MEDS ORDERED: LORazepam 2 MG/ML INJ IV PRN (16:31)
[2019-04-25] MEDS ORDERED: HEPARIN SODIUM,PORCINE 5,000 UNIT/ML 1 ML VIAL IV STA (16:38)
--- NOTE | 2019-04-25 16:46 | P.PN ---
Subjective Progress Note Date: 04/25/19 (delayed charting seen at 11 am) Principal diagnosis: Unresponsive Patient is a 54-year-old male who was brought in via EMS. Initially EMS was called secondary to demand being found down. On EMS arrival patient was pulseless and apneic in the campaign worker showed asystole. Initially he received 4 rounds of epinephrine in route to the emergency department initially with return of spontaneous circulation. This down time was expected 833 minutes including time prior to arrival. He then lost pulses again in the ambulance and CPR was resumed. Per ED documentation patient had pulses on arrival to the ER. He had a central line placed and was intubated in the emergency department. He was taken emergently to the [facility] was found have normal coronary angiogram w ith normal ventricular diastolic pressure. He developed hyper-tension and cardiac cath and Nitro drip was added. Initial laboratory analysis showed a white blood cell count of 15.8, positive d-dimer at 8.17, potassium of 2.8, carbon dioxide of 16, creatinine of 1.8, and glucose of 323. Plasma lactic acid was elevated at 12.8. He was profoundly acidotic with a pH of 7.18. He underwent an emergent head CT which showed loss of leblanc-white matter differentiation and some cerebral edema. Echocardiogram showed preserved ejection fraction with no signs of hypokinesis. Lower extremity venous Dopplers were negative. History on Decadron for his cerebral edema. He was seen by neurology and mannitol was added, EEG was performed which was consistent with anoxic encephalopathy. He underwent abdominal ultrasound which showed gallbladder sludge, cholelithiasis, and hepatic steatosis with probable focal fatty sparing around the gallbladder fossa. He was started on a heparin drip with concern for pulmonary embolism. Per nursing report on 04/23 and sedation was weaned he became very tachypneic and agitated and difficult propofol increased. CTA of the chest was negative for pulmonary embolism. Repeat head CT showed worsening cerebral edema. Patient was again seen by neurology who felt there was no hope for significant neurologic recovery. Family elected to proceed with comfort measures, and possible organ donation. [facility] contacted. Patient was made DO NOT RESUSCITATE, family aware and did not want to prolong the hospital. Patient seen and examined at bedside with multiple family members at bedside.. He is nonresponsive on vent. Objective - Vital Signs Vital signs: Vital Signs Temp 99.2 F 04/25/19 16:00 Pulse 70 04/25/19 16:00 Resp 23 04/25/19 16:00 BP 161/80 04/25/19 16:00 Pulse Ox 93 L 04/25/19 16:00 Intake & Output 04/24/19 04/25/19 04/25/19 18:59 06:59 18:59 Intake Total 2721.051 2447 1751.638 Output Total 1935 2830 805 Balance 786.051 -383 946.638 Weight 75 kg 75 kg Intake: IV 1740.3 1690 1315 .9 1320 1440 1200 ART line 15 Mannitol 20% Pmx 150 ml @ 300 150 300 mls/hr IV Q6H [facility] Rx #:[id number] fentaNYL (PF) 1,000 mcg 20.3 In Sodium Chloride 0.9% 80 ml @ 0.25 MCG/KG/HR 2. 465 mls/hr IV .Q24H [facility] Rx#:[id number] levETIRAcetam IV 750 mg 100 100 100 In Sodium Chloride 0.9% 100 ml @ 400 mls/hr IVPB Q12HR [facility] Rx#:[id number] Intake, IV Titration 473.751 400 436.638 Amount Heparin Sod,Pork in 0.45% 229.583 NaCl 25,000 unit In 0.45 % NaCl 1 250ml.bag @ 23. 123 UNITS/KG/HR 16.764 mls/hr IV .[id number] [facility] Rx #:[id number] Propofol 1,000 mg In 203.024 400 371.438 Empty Bag 1 bag @ Titrate IV .Q0M [facility] Rx#: [id number] fentaNYL (PF) 1,000 mcg 41.144 65.200 In Sodium Chloride 0.9% 80 ml @ 0.5 MCG/KG/HR 3. 625 mls/hr IV .Q24H [facility] Rx#:[id number] Tube Feeding 417 297 Other 90 60 Output: Gastric Drainage 1500 Urine 1935 1330 805 Other: Voiding Method Indwelling Catheter Indwelling Catheter Indwelling Catheter ABP, PAP, CO, CI - Last Documented Arterial Blood Pressure 162/62 - Exam General: ill appearing, no distress, appears at stated age Derm: warm, dry Head: multiple abrasions right forehead, normocephalic, symmetric Eyes: Pupils pinpoint, not following light, no lid lag, anicteric sclera Mouth: no lip lesion, mucus membranes dry, ET tube in place Cardiovascular: S1S2 reg, no murmur, positive posterior tibial pulse bilateral, Lungs: Course bs bilateral on vent, no rhonchi, no rales , no accessory muscle use Abdominal: soft, nontender to palpation, no guarding, no appreciable organomegaly Ext: no gross muscle atrophy, no edema, no contractures Neuro: sedated on vent, No withdrawal to pain but on sedation, breathing over vent no cough Psych: sedated on vent Urogential: teixeira in place, yellow urine - Labs CBC & Chem 7: 04/25/19 14:16 04/25/19 14:16 Labs: Abnormal Lab Results - Last 24 Hours (Table) 04/24/19 04/24/19 04/24/19 Range/Units 17:05 22:15 22:15 WBC (3.8-10.6) k/uL RBC (4.30-5.90) m/uL Hgb (13.0-17.5) gm/dL Hct (39.0-53.0) % Neutrophils # (1.3-7.7) k/uL Lymphocytes # (1.0-4.8) k/uL APTT 18.3 L (22.0-30.0) sec ABG pH (7.35-7.45) ABG pCO2 (35-45) mmHg ABG pO2 (83-108) mmHg ABG HCO3 (21-25) mmol/L ABG Total CO2 (19-24) mmol/L ABG O2 Saturation (94-97) % Sodium 147 H 149 H (137-145) mmol/L Potassium 3.3 L (3.5-5.1) mmol/L Chloride 118 H (98-107) mmol/L Carbon Dioxide (22-30) mmol/L Glucose 109 H (74-99) mg/dL POC Glucose (mg/dL) (75-99) mg/dL Osmolality 314 H (280-301) mosm/kg Calcium (8.4-10.2) mg/dL Phosphorus 2.4 L (2.5-4.5) mg/dL Alkaline Phosphatase 138 H (38-126) U/L Total Protein 5.0 L (6.3-8.2) g/dL Albumin 2.8 L (3.5-5.0) g/dL 04/24/19 04/24/19 04/25/19 Range/Units 22:15 22:41 04:55 WBC 12.4 H (3.8-10.6) k/uL RBC 3.88 L 3.74 L (4.30-5.90) m/uL Hgb 11.1 L 10.9 L (13.0-17.5) gm/dL Hct 34.0 L 32.8 L (39.0-53.0) % Neutrophils # 11.0 H 9.1 H (1.3-7.7) k/uL Lymphocytes # 0.7 L 0.8 L (1.0-4.8) k/uL APTT (22.0-30.0) sec ABG pH (7.35-7.45) ABG pCO2 (35-45) mmHg ABG pO2 (83-108) mmHg ABG HCO3 (21-25) mmol/L ABG Total CO2 (19-24) mmol/L ABG O2 Saturation (94-97) % Sodium (137-145) mmol/L Potassium (3.5-5.1) mmol/L Chloride (98-107) mmol/L Carbon Dioxide (22-30) mmol/L Glucose (74-99) mg/dL POC Glucose (mg/dL) 111 H (75-99) mg/dL Osmolality (280-301) mosm/kg Calcium (8.4-10.2) mg/dL Phosphorus (2.5-4.5) mg/dL Alkaline Phosphatase (38-126) U/L Total Protein (6.3-8.2) g/dL Albumin (3.5-5.0) g/dL 04/25/19 04/25/19 04/25/19 Range/Units 04:55 04:55 07:50 WBC (3.8-10.6) k/uL RBC (4.30-5.90) m/uL Hgb (13.0-17.5) gm/dL Hct (39.0-53.0) % Neutrophils # (1.3-7.7) k/uL Lymphocytes # (1.0-4.8) k/uL APTT (22.0-30.0) sec ABG pH 7.54 H (7.35-7.45) ABG pCO2 32 L (35-45) mmHg ABG pO2 58 L* (83-108) mmHg ABG HCO3 28 H (21-25) mmol/L ABG Total CO2 29 H (19-24) mmol/L ABG O2 Saturation 93.1 L (94-97) % Sodium 150 H (137-145) mmol/L Potassium 3.2 L (3.5-5.1) mmol/L Chloride 118 H (98-107) mmol/L Carbon Dioxide (22-30) mmol/L Glucose 106 H (74-99) mg/dL POC Glucose (mg/dL) (75-99) mg/dL Osmolality 320 H (280-301) mosm/kg Calcium (8.4-10.2) mg/dL Phosphorus (2.5-4.5) mg/dL Alkaline Phosphatase 129 H (38-126) U/L Total Protein 4.8 L (6.3-8.2) g/dL Albumin 2.7 L (3.5-5.0) g/dL 04/25/19 04/25/19 04/25/19 Range/Units 09:20 11:23 14:16 WBC (3.8-10.6) k/uL RBC (4.30-5.90) m/uL Hgb (13.0-17.5) gm/dL Hct (39.0-53.0) % Neutrophils # (1.3-7.7) k/uL Lymphocytes # (1.0-4.8) k/uL APTT (22.0-30.0) sec ABG pH (7.35-7.45) ABG pCO2 (35-45) mmHg ABG pO2 (83-108) mmHg ABG HCO3 (21-25) mmol/L ABG Total CO2 (19-24) mmol/L ABG O2 Saturation (94-97) % Sodium 152 H 151 H (137-145) mmol/L Potassium 2.5 L* (3.5-5.1) mmol/L Chloride 126 H (98-107) mmol/L Carbon Dioxide 20 L (22-30) mmol/L Glucose (74-99) mg/dL POC Glucose (mg/dL) 100 H (75-99) mg/dL Osmolality 316 H (280-301) mosm/kg Calcium 6.7 L (8.4-10.2) mg/dL Phosphorus 2.4 L (2.5-4.5) mg/dL Alkaline Phosphatase (38-126) U/L Total Protein 4.0 L (6.3-8.2) g/dL Albumin 2.1 L (3.5-5.0) g/dL 04/25/19 Range/Units 14:16 WBC (3.8-10.6) k/uL RBC 3.58 L (4.30-5.90) m/uL Hgb 10.7 L (13.0-17.5) gm/dL Hct 31.6 L (39.0-53.0) % Neutrophils # (1.3-7.7) k/uL Lymphocytes # 0.7 L (1.0-4.8) k/uL APTT (22.0-30.0) sec ABG pH (7.35-7.45) ABG pCO2 (35-45) mmHg ABG pO2 (83-108) mmHg ABG HCO3 (21-25) mmol/L ABG Total CO2 (19-24) mmol/L ABG O2 Saturation (94-97) % Sodium (137-145) mmol/L Potassium (3.5-5.1) mmol/L Chloride (98-107) mmol/L Carbon Dioxide (22-30) mmol/L Glucose (74-99) mg/dL POC Glucose (mg/dL) (75-99) mg/dL Osmolality (280-301) mosm/kg Calcium (8.4-10.2) mg/dL Phosphorus (2.5-4.5) mg/dL Alkaline Phosphatase (38-126) U/L Total Protein (6.3-8.2) g/dL Albumin (3.5-5.0) g/dL Microbiology - Last 24 Hours (Table) 04/22/19 23:30 Gram Stain - Preliminary Sputum Sputum Culture - Preliminary 04/23/19 00:10 Blood Culture - Preliminary Blood No Growth after 48 hours 04/23/19 00:32 Blood Culture - Preliminary Blood No Growth after 48 hours Assessment and Plan Assessment: Aborted sudden cardiac with anoxic encephalopathy and cerebral edema - transition to comfort measure and organ donation -Neurology recommendations appreciated, EEG with signs of anoxic encephalopathy -Cardiac cath clean, echo with preserved EF -Critical care recs appreciated - radhara for seizure prophylaxis - mannitol discontinued as part of comfort measures, continued on propofol and fentanyl, gttt - ativan and morphine will be used during terminal wean. Acute hypoxic respiratory failure secondary to above -Management per critical care Anemia - likely dilutional - follow CBC Hypocalcemia - repeat labs Hypokalemia - replace GO - CPAP at baseline Respiratory acidosis, Resolved Leukocytosis, resolved MALATHI, likely ATN, resolved Hyperglycemia, resolved Elevated d-dimer, CTA negative DVT prophylaxis: heparin SC Discussed with: nursing,GOL,and family Anticipated discharge: undetermined Anticipated discharge place: undetermined A total of 35 minutes was spent on the care of this complex patient more than 50% of the time was spent in counseling and care coordination.
[2019-04-25] MEDS ORDERED: ATROPINE OPHTH SOLN 1% 5ML BTL SUBLINGUAL PRN (16:50)
[2019-04-25] MEDS ORDERED: SCOPOLAMINE 1.5MG/72HR PATCH TRANSDERM STA (16:50)
[2019-04-25 17:15] LABS: Glucose,Whole Blood 109 mg/dL (75-99)
[2019-04-25 17:17] LABS: Basophils % (A) 0 %; Eosinophils # (A) 0.1 k/uL (0-0.7); Eosinophils % (A) 1 %; HCT 31.9 % (39.0-53.0); HGB 10.9 gm/dL (13.0-17.5); Lymphocytes # (A) 0.7 k/uL (1.0-4.8); Lymphocytes % (A) 8 %; MCH 30.1 pg (25.0-35.0); MCHC 34.1 g/dL (31.0-37.0); MCV 88.4 fL (80.0-100.0); Mean Platelet Volume 7.4; Monocytes # (A) 0.4 k/uL (0-1.0); Monocytes % (A) 5 %; Neutrophils # (A) 7.6 k/uL (1.3-7.7); Neutrophils % (A) 85 %; Platelet Count 244 k/uL (150-450); RBC 3.61 m/uL (4.30-5.90); RDW 14.2 % (11.5-15.5); WBC 8.9 k/uL (3.8-10.6)
[2019-04-25 17:23] LABS: INR 0.9 (<1.2); Partial Thromboplastin Time 23.6 sec (22.0-30.0); Prothrombin Time 9.9 sec (9.0-12.0)
[2019-04-25 17:25] LABS: ALT 33 U/L (21-72); AST 75 U/L (17-59); African American GFR (CKD) >90 (>60 ml/min/1.73 sqM); Albumin 2.8 g/dL (3.5-5.0); Alkaline Phosphatase 156 U/L (38-126); Amylase 45 U/L (30-110); Anion Gap 7 mmol/L; Blood Urea Nitrogen 14 mg/dL (9-20); Calcium 8.6 mg/dL (8.4-10.2); Carbon Dioxide 24 mmol/L (22-30); Chloride 121 mmol/L (98-107); Glucose 114 mg/dL (74-99); Non-African American GFR(CKD) 82 (>60 ml/min/1.73 sqM); Phosphorus 3.5 mg/dL (2.5-4.5); Potassium 3.5 mmol/L (3.5-5.1); Sodium 152 mmol/L (137-145); Total Bilirubin 0.8 mg/dL (0.2-1.3); Total Protein 5.1 g/dL (6.3-8.2)
[2019-04-25 17:46] LABS: Appearance,Urine Clear (Clear); Bacteria,Urine Rare /hpf; Bilirubin,Urine Negative (Negative); Blood,Urine Moderate (Negative); Color,Urine Yellow; Glucose,Urine (UA) Negative (Negative); Ketones,Urine 1+ (Negative); Leukocyte Esterase,Urine Small (Negative); Mucus,Urine Rare /hpf; Nitrite,Urine Negative (Negative); Protein,Urine 1+ (Negative); RBC,Urine >182 /hpf (0-5); Specific Gravity,Urine 1.014 (1.001-1.035); Urobilinogen,Urine <2.0 mg/dL (<2.0); WBC,Urine 22 /hpf (0-5)
--- NOTE | 2019-04-25 20:05 | P.DS ---
Providers Date of admission: 04/22/19 18:20 Expected date of discharge: 04/25/19 Attending physician: Melinda Walter MD Consults: 04/22/19 18:15 Consult Physician Routine Consulting Provider: Chalo Kong Consult Reason/Comments: cardiac arrest, stemi Do you want consulting provider notified?: Yes 04/22/19 21:23 Consult Physician Routine Consulting Provider: Yusef Fay Consult Reason/Comments: ICU pt Do you want consulting provider notified?: Yes 04/23/19 03:05 Consult Physician Routine Consulting Provider: Eduardo Hanks Consult Reason/Comments: anoxic brain injury Do you want consulting provider notified?: Yes, Notify in am Primary care physician: Stated None Hospital Course: Discharge Diagnosis: aborted sudden cardiac Anoxic encephalopathy cerebral edema Acute hypoxic encephalopathy Anemia HYpocalcemia Hypokalemia GO Respiratory acidosis, Resolved Leukocytosis, resolved MALATHI, likely ATN, resolved Hyperglycemia, resolved Elevated d-dimer, CTA negative Hospital Course: Patient is a 54-year-old male who was brought in via EMS. Initially EMS was called secondary to demand being found down. On EMS arrival patient was pulseless and apneic in the monitoring analyst showed asystole. Initially he received 4 rounds of epinephrine in route to the emergency department initially with return of spontaneous circulation. This down time was expected 833 minutes including time prior to arrival. He then lost pulses again in the ambulance and CPR was resumed. Per ED documentation patient had pulses on arrival to the ER. He had a central line placed and was intubated in the emergency department. He was taken emergently to the [facility] was found have normal coronary angiogram with normal ventricular diastolic pressure. He developed hyper-tension and cardiac cath and Nitro drip was added. Initial laboratory analysis showed a white blood cell count of 15.8, positive d-dimer at 8.17, potassium of 2.8, carbon dioxide of 16, creatinine of 1.8, and glucose of 323. Plasma lactic acid was elevated at 12.8. He was profoundly acidotic with a pH of 7.18. He underwent an emergent head CT which showed loss of leblanc-white matter differentiation and some cerebral edema. Echocardiogram showed preserved ejection fraction with no signs of hypokinesis. Lower extremity venous Dopplers were negative. History on Decadron for his cerebral edema. He was seen by neurology and mannitol was added, EEG was performed which was consistent with anoxic encephalopathy. He underwent abdominal ultrasound which showed gallbladder sludge, cholelithiasis, and hepatic steatosis with probable focal fatty sparing around the gallbladder fossa. He was started on a heparin drip with concern for pulmonary embolism. Per nursing report on 04/23 and sedation was weaned he became very tachypneic and agitated and difficult propofol increased. CTA of the chest was negative for pulmonary embolism. Repeat head CT showed worsening cerebral edema. Patient was again seen by neurology who felt there was no hope for significant neurologic recovery. Family elected to proceed with comfort measures, and possible organ donation. [facility] contacted. Scopalamine patch placed to help with secretions. Terminal wean at family's request due to no reasonable hope of neurologic recovery. Provided with medications to ensure comfort and pain control. His propofol drip and fentanyl drip were stopped approximately 20 minutes prior to extubation. Family wanted to ensure comfort at time of extubation. He was premedicated with standard medications of morphine and ativan. He was then extubated. Patient was continually monitored. Asystole was noted on the monitor at 1946, He had absent respirations, no radial pulse, heart sounds were not auscultated, no withdrawal to pain. Patient was monitored for an additional 5 minutes and continued to have asystole on the monitor. Pupil were fixed and dilated. Time of 1950. Time of : 1950 A total of 32 minutes of time were spent preparing this complex discharge summary . Pertinent Studies: Initial chest x-ray-right mainstem bronchus ET tube Initial CT brain-indistinct leblanc white differentiation concerning for cerebral edema/hypoxic ischemic injury Repeat head CT- reduced sulci diffusely, areas of low attentuation within basal ganglia Venous Doppler-no evidence of DVT Echocardiogram-ejection fraction 60-65% Abdominal ultrasound-gallbladder sludge, cholelithiasis, hepatic steatosis CTA of the chest-bilateral areas of consolidation, no pulmonary emboli EEG- diffuse background slowing, paroxysms Gen. spikes/wave discharges indicative of anoxic brain injury Procedures: Cardiac catheterization-normal coronary angiogram, normal left ventricular end- diastolic pressure Plan - Discharge Summary Discharge Rx Participant: No New Discharge Prescriptions: No Action No Known Home Medications Discharge Medication List No Known Home Medications 04/22/19 [History] Follow up Appointment(s)/Referral(s): None,Stated [Primary Care Provider] - 1-2 days Discharge Disposition: - Preliminary Cause of Preliminary Cause of : cerebral edema
[2019-04-25 20:12] VITALS: BP 168/88; PULSE 77; RESP 25
--- NOTE | 2019-04-29 09:30 | CDI ---
Documentation Clarification Form Date: 04/29/2019 From: Mary Carmen Yanez Phone: If questions call Zully Silverio @ [phone], Hours-8:30 am & 5 pm MBritany Palomino Admit Date: 04/22/2019 6:20:00 PM Patient Name: Dick Segovia Visit Number: [id number] Discharge Date: 04/26/2019 1:57:00 AM ATTENTION: The Clinical Documentation Specialists (CDI) and [facility] Coding Staff appreciate your assistance in clarifying documentation. Please respond to the clarification below the line at the bottom and electronically sign. The CDI & [facility] Coding staff will review the response and follow-up if needed. Please note: Queries are made part of the Legal Health Record. If you have any questions, please contact the author of this message via ITS. Dr. Carlee Zendejas Your patient has the documented diagnosis of aborted sudden cardiac /cardiac arrest in your discharge summary. A relationship between diagnoses cannot be assumed unless documented as such by the attending physician. In order to capture the severity of condition; please document the relationship, if any, between these diagnoses. History/Risk Factors: hypertensive emergency, anoxic encephalopathy, cerebral edema, acute hypoxic respiratory failure, ATN, SIRS Treatment: CPR, intubated w MV, left heart cath, IV fluids, insulin drip, supportative medications Please clarify and document your clinical opinion in the progress notes and discharge summary if any relationship (due to, caused by, secondary to) exists between these two diagnoses. Please include clinical findings supporting your diagnosis. Cause of sudden cardiac /cardiac arrest Other explanation of clinical findings (please specify) Unable to determine (no explanation for clinical findings) unable to determine MTDD
== END 2019-04-26 01:57 | disposition expired | DRG 286 ==
LOC: EC 17:13 → 2SICU 18:20
PROVIDERS: ADMIT Family Medicine; ATTEND Family Medicine
PROC: B2111ZZ Fluoroscopy of Multiple Coronary Arteries using Low Osmolar Contrast (ICD-10-PCS; 2019-04-22)
PROC: 06HM33Z Insertion of Infusion Device into Right Femoral Vein, Percutaneous Approach (ICD-10-PCS; 2019-04-22)
PROC: 0BH17EZ Insertion of Endotracheal Airway into Trachea, Via Natural or Artificial Opening (ICD-10-PCS; 2019-04-22)
PROC: 5A1945Z Respiratory Ventilation, 24-96 Consecutive Hours (ICD-10-PCS; 2019-04-22)
PROC: 4A023N7 Measurement of Cardiac Sampling and Pressure, Left Heart, Percutaneous Approach (ICD-10-PCS; principal; 2019-04-22 18:00)
PROC: 0D9670Z Drainage of Stomach with Drainage Device, Via Natural or Artificial Opening (ICD-10-PCS; 2019-04-23)
PROC: 3E0G76Z Introduction of Nutritional Substance into Upper GI, Via Natural or Artificial Opening (ICD-10-PCS; 2019-04-23)
PROC: 03HY32Z Insertion of Monitoring Device into Upper Artery, Percutaneous Approach (ICD-10-PCS; 2019-04-25)
PROC: 4A133B1 Monitoring of Arterial Pressure, Peripheral, Percutaneous Approach (ICD-10-PCS; 2019-04-25)
PROC: 4A133J1 Monitoring of Arterial Pulse, Peripheral, Percutaneous Approach (ICD-10-PCS; 2019-04-25)
DX: I46.9 Cardiac arrest, cause unspecified (principal); G93.6 Cerebral edema; J96.01 Acute respiratory failure with hypoxia; N17.0 Acute kidney failure with tubular necrosis; R40.2114 Coma scale, eyes open, never, 24 hours or more after hospital admission; R40.2122 Coma scale, eyes open, to pain, at arrival to emergency department; R40.2314 Coma scale, best motor response, none, 24 hours or more after hospital admission; R40.2214 Coma scale, best verbal response, none, 24 hours or more after hospital admission; G93.1 Anoxic brain damage, not elsewhere classified; E87.2 Acidosis; I16.1 Hypertensive emergency; J98.11 Atelectasis; R65.10 Systemic inflammatory response syndrome (SIRS) of non-infectious origin without acute organ dysfunction; Z99.11 Dependence on respirator [ventilator] status; Z51.5 Encounter for palliative care; Z66 Do not resuscitate; I95.9 Hypotension, unspecified; E83.39 Other disorders of phosphorus metabolism; E86.0 Dehydration; E83.51 Hypocalcemia; K76.0 Fatty (change of) liver, not elsewhere classified; R40.2352 Coma scale, best motor response, localizes pain, at arrival to emergency department; R40.2232 Coma scale, best verbal response, inappropriate words, at arrival to emergency department; Z52.4 Kidney donor; Z52.6 Liver donor; R73.9 Hyperglycemia, unspecified; H57.04 Mydriasis; D64.9 Anemia, unspecified; D72.829 Elevated white blood cell count, unspecified; E87.6 Hypokalemia; G47.33 Obstructive sleep apnea (adult) (pediatric); K80.20 Calculus of gallbladder without cholecystitis without obstruction; E66.9 Obesity, unspecified; Z68.25 Body mass index [BMI] 25.0-25.9, adult; F17.210 Nicotine dependence, cigarettes, uncomplicated
CPT/HCPCS: 31500; 36415; 36556; 36600; 70450; 71045; 71275; 76770; 80048; 80053; 80306; 81001; 82150; 82248; 82803; 82805; 83036; 83605; 83690; 83735; 83930; 84100; 84295; 84484; 85025; 85379; 85610; 85730; 86850; 86900; 86901; 87040; 87070; 87077; 87186; 87205; 93005; 93306; 93458; 93970; 94002; 94003; 95816; 96374; 99291